=== PATIENT | male | born 1955 | race Hispanic/Latino ===

== ENCOUNTER 2017-11-09 14:11 | Emergency (ER) | payer MEDICARE, MEDICAID ==
[2017-11-09 15:08] LABS: Bilirubin Negative (Negative); Blood, Urine Negative (Negative); Clarity CLEAR (Clear); Glucose, Urine (Dipstick) Negative (Negative); Leukocyte Negative (Negative); Nitrite Negative (Negative); Protein, Urine (Dipstick) Trace mg/dL (Neg-Trace); Specific Gravity, Urine 1.019 (1.002-1.036); pH, Urine 6.5 (5.0-9.0)
--- NOTE | 2017-11-09 15:45 | RAD ---
PA AND LATERAL VIEWS OF THE CHEST: 11/09/17 HISTORY: Cough. FINDINGS: The heart size is normal. The lungs are expanded without focal areas of consolidation, pneumothorax o r pleural effusions. There are mild degenerative changes in the spine. IMPRESSION: No radiographic evidence of acute cardiopulmonary process. POS: [facility]
[2017-11-09 15:56] LABS: #Basophils 0.1 thou/uL (0.0-0.2); #Eosinphils 0.4 thou/uL (0.0-0.7); #Lymphocytes 3.2 thou/uL (1.20-3.40); #Monocytes 0.7 thou/uL (0.11-0.59); #Neutrophils 6.4 thou/uL (1.40-6.50); %Basophils 0.9 % (0.0-1.0); %Eosinophils 3.8 % (0.0-10.0); %Lymphocytes 29.7 % (21.0-51.0); %Monocytes 6.6 % (0.0-10.0); %Neutrophils 59.1 % (42.0-75.0); Hemoglobin 16.3 g/dL (14.0-18.0); Mean Corpuscular HGB CONC 34.5 g/dL (32.0-36.0); Mean Corpuscular Hemoglobin 32.9 pg (27.0-31.0); Mean Corpuscular Volume 95.4 fl (80.0-94.0); Mean Platelet Volume 8.5 fL (7.4-10.4); Platelet Count 95 thou/uL (130-400); RBC Distribution Width 12.5 % (11.5-14.5); Red Blood Cell (RBC) Count 4.97 mill/uL (4.70-6.10); White Blood Cell (WBC) Count 10.8 thou/uL (4.8-10.8)
[2017-11-09 16:18] LABS: ALT (SGPT) 23 U/L (8-55); AST (SGOT) 22 U/L (5-34); Alkaline Phosphatase 125 U/L (40-150); Anion Gap 14 mmol/L (10-20); BUN (Urea Nitrogen) 23 mg/dL (8.4-25.7); Bilirubin, Total 0.6 mg/dL (0.2-1.2); Calc. Creatinine Clearance 0 mL/min (70-130); Carbon Dioxide 23 mmol/L (23-31); Chloride 107 mmol/L (98-107); Estimated GFR-MDRD 70; Globulin 3.6 g/dL (2.4-3.5); Glucose 89 mg/dL (80-115); Potassium 3.9 mmol/L (3.5-5.1); Protein, Total 7.6 g/dL (5.8-8.1); Sodium 140 mmol/L (136-145)
[2017-11-09] MEDS ORDERED: Acetaminophen 325 MG TAB ONE (16:47)
--- NOTE | 2017-11-16 15:06 | EKG ---
Test Reason : Blood Pressure : / mmHG Vent. Rate : 079 BPM Atrial Rate : 079 BPM P-R Int : 136 ms QRS Dur : 090 ms QT Int : 388 ms P-R-T Axes : 050 038 054 degrees QTc Int : 444 ms Normal sinus rhythm Normal ECG Confirmed by GORGE HEREDIA ([id number]), book or script editor CAITLIN TRUJILLO ([id number]) on 11/16/2017 3:05:52 PM Referred By: Confirmed By:GORGE HEREDIA
== END 2017-11-09 17:00 | disposition home or self-care (01) ==
LOC: ERS 14:11
DX: J18.9 Pneumonia, unspecified organism (principal); F17.210 Nicotine dependence, cigarettes, uncomplicated
CPT/HCPCS: 36415; 71046; 80053; 81003; 85025; 87804; 93005; 99406

== ENCOUNTER 2021-05-20 17:14 | Inpatient (IN) | payer MEDICARE, MEDICAID ==
[~2021-05-20 17:14] MED LIST: Iopamidol-370 76% 500 ML 1 ML ONE
[2021-05-20 17:50] LABS: #Eosinphils 0.2 thou/uL (0.0-0.7); #Lymphocytes 1.8 thou/uL (1.20-3.40); #Monocytes 0.6 thou/uL (0.11-0.59); #Neutrophils 6.6 thou/uL (1.40-6.50); %Basophils 0.2 % (0.0-1.0); %Eosinophils 1.6 % (0.0-10.0); %Lymphocytes 19.8 % (21.0-51.0); %Monocytes 6.2 % (0.0-10.0); %Neutrophils 72.1 % (42.0-75.0); Hemoglobin 11.7 g/dL (14.0-18.0); Mean Corpuscular HGB CONC 33.9 g/dL (32.0-36.0); Mean Corpuscular Hemoglobin 32.8 pg (27.0-31.0); Mean Corpuscular Volume 96.9 fL (78.0-98.0); Mean Platelet Volume 9.2 fL (7.4-10.4); Platelet Count 129 thou/uL (130-400); RBC Distribution Width 13.5 % (11.5-14.5); Red Blood Cell (RBC) Count 3.56 mill/uL (4.70-6.10); White Blood Cell (WBC) Count 9.1 thou/uL (4.8-10.8)
[2021-05-20 18:06] LABS: INR-International Normal Ratio 1.3; PTT 33.5 sec (22.9-36.1); Prothrombin Time 16.4 sec (12.0-14.7)
[2021-05-20 18:13] LABS: ALT (SGPT) 21 U/L (8-55); AST (SGOT) 32 U/L (5-34); Albumin 3.5 g/dL (3.4-4.8); Alkaline Phosphatase 90 U/L (40-110); Anion Gap 13 mmol/L (10-20); BUN (Urea Nitrogen) 42 mg/dL (8.4-25.7); Bilirubin, Total 1.6 mg/dL (0.2-1.2); Calc. Creatinine Clearance 0 mL/min (70-130); Calcium 9.3 mg/dL (7.8-10.44); Carbon Dioxide 19 mmol/L (23-31); Chloride 115 mmol/L (98-107); Globulin 3.4 g/dL (2.4-3.5); Glucose 125 mg/dL (80-115); Potassium 4.2 mmol/L (3.5-5.1); Protein, Total 6.9 g/dL (5.8-8.1); Sodium 143 mmol/L (136-145)
[2021-05-20] MEDS ORDERED: cefTRIAXone\\ROCEPHIN 1 GM VIAL ONE (18:47)
[2021-05-20] MEDS ORDERED: Morphine 4 MG/ML VIAL ONE (18:47)
[2021-05-20] MEDS ORDERED: Ondansetron PF 4 MG/2 ML Vial ONE ×2 (18:47→20:38)
[2021-05-20] MEDS ORDERED: Octreotide Acetate 1,250 MCG in Sodium Chloride 0.9% 250 ML 250 ML IVPB SCH (19:15)
[2021-05-20] MEDS ORDERED: Pantoprazole 80 MG, Admixture Fee 1 EACH in Sodium Chloride 0.9% 100 ML IVPB SCH (19:15)
[2021-05-20] MEDS ORDERED: Octreotide Acetate 50 MCG/ML AMP SLOW IVP SCH (19:15)
[2021-05-20 19:26] LABS: Bacteria/HPF None Seen HPF (None Seen); Bilirubin Negative (Negative); Blood, Urine Negative (Negative); Clarity Clear (Clear); Glucose, Urine (Dipstick) Normal (Negative); Ketone, Urine 10 mg/dL (Negative); Leukocyte 25 Leu/uL (Negative); Mucous/LPF Rare LPF (<2+); Nitrite Negative (Negative); Protein, Urine (Dipstick) 20 mg/dL (Neg-Trace); RBC/HPF 0-3 HPF (0-3); Specific Gravity, Urine 1.027 (1.002-1.036); Squamous Epithelial None Seen HPF (0-3); Urobilinogen Normal mg/dL (Less than 2)
[2021-05-20 20:50] LABS: Lactic Acid 2.8 mmol/L (0.5-2.2)
[2021-05-20] MEDS ORDERED: Ondansetron PF 4 MG/2 ML Vial IVP PRN (22:10)
[2021-05-20] MEDS ORDERED: hydrALAZINE 20 MG/ML VIAL SLOW IVP PRN (22:12)
[2021-05-20] MEDS ORDERED: Morphine 2 MG/ML VIAL SLOW IVP PRN (22:12)
[2021-05-20 22:32] LABS: Hemoglobin 10.7 g/dL (14.0-18.0)
[2021-05-20 22:55] LABS: SARS-CoV-2 NAA Rapid Test Not Detected (NotDetected)
[2021-05-20 23:55] LABS: Troponin I 0.014 ng/mL (< 0.028)
[2021-05-21 01:06] VITALS: BMI 30.2
[2021-05-21] MEDS: Dextrose 5 % And 0.9 % NaCl 1,000 ML IV SCH ×3 (02:05→16:27)
[2021-05-21 04:30] LABS: #Basophils 0.1 thou/uL (0.0-0.2); #Eosinphils 0.1 thou/uL (0.0-0.7); #Lymphocytes 1.3 thou/uL (1.20-3.40); #Monocytes 0.6 thou/uL (0.11-0.59); %Basophils 0.7 % (0.0-1.0); %Eosinophils 1.7 % (0.0-10.0); %Lymphocytes 15.6 % (21.0-51.0); %Monocytes 7.6 % (0.0-10.0); %Neutrophils 74.4 % (42.0-75.0); Hemoglobin 10.1 g/dL (14.0-18.0); Mean Corpuscular Hemoglobin 33.1 pg (27.0-31.0); Mean Corpuscular Volume 97.4 fL (78.0-98.0); Mean Platelet Volume 9.8 fL (7.4-10.4); Platelet Count 104 thou/uL (130-400); RBC Distribution Width 13.8 % (11.5-14.5); Red Blood Cell (RBC) Count 3.06 mill/uL (4.70-6.10); White Blood Cell (WBC) Count 8.1 thou/uL (4.8-10.8)
[2021-05-21 04:50] LABS: ALT (SGPT) 19 U/L (8-55); AST (SGOT) 28 U/L (5-34); Albumin 3.2 g/dL (3.4-4.8); Alkaline Phosphatase 71 U/L (40-110); Anion Gap 10 mmol/L (10-20); BUN (Urea Nitrogen) 38 mg/dL (8.4-25.7); Bilirubin, Total 1.2 mg/dL (0.2-1.2); Calc. Creatinine Clearance 114 mL/min (70-130); Calcium 8.7 mg/dL (7.8-10.44); Carbon Dioxide 20 mmol/L (23-31); Chloride 117 mmol/L (98-107); Globulin 3.1 g/dL (2.4-3.5); Glucose 150 mg/dL (80-115); Potassium 4.4 mmol/L (3.5-5.1); Protein, Total 6.3 g/dL (5.8-8.1); Sodium 143 mmol/L (136-145)
[2021-05-21 04:53] LABS: Troponin I Less than 0.010 ng/mL (< 0.028)
[2021-05-21 06:29] LABS: Hemoglobin 10.2 g/dL (14.0-18.0)
[2021-05-21] MEDS: Cefepime 1 GM in Sodium Chloride 0.9% 100 ML IVPB SCH ×2 (09:40→21:00)
[2021-05-21] MEDS ORDERED: Glycopyrrolate 0.2 MG/ML 5 ML SYRINGE ONE (13:51)
[2021-05-21] MEDS ORDERED: Lidocaine 1% PF 5 ML VIAL ONE (13:51)
[2021-05-21] MEDS ORDERED: Rocuronium Bromide 10 MG/ML (10ML VIAL) ONE (13:51)
[2021-05-21] MEDS ORDERED: PROPOFOL 200 MG/20 ML VIAL ONE (13:51)
[2021-05-21] MEDS ORDERED: Ondansetron PF 4 MG/2 ML Vial ONE (14:28)
[2021-05-21] MEDS ORDERED: Promethazine HCl 25 MG/ML VIAL IVPB PRN (14:30)
[2021-05-21] MEDS ORDERED: Ondansetron HCl/PF 4 MG/2 ML Vial IVP PRN (14:30)
[2021-05-21] MEDS ORDERED: Promethazine HCl 25 MG/ML VIAL IM PRN (14:30)
[2021-05-21] MEDS ORDERED: Labetalol HCl 100 MG/20 ML VIAL ONE (14:31)
[2021-05-21] MEDS ORDERED: Labetalol HCl 100 MG/20 ML VIAL SLOW IVP ONE (14:31)
[2021-05-21] MEDS: HYDROcodone/Acetaminophen 5/325 mg Tablet PO PRN (21:44)
[2021-05-21] MEDS ORDERED: Sodium Chloride 0.9% (PF) 10 ML VIAL FS PRN (22:15)
[2021-05-22] MEDS: HYDROcodone/Acetaminophen 5/325 mg Tablet PO PRN ×2 (04:17→13:57)
[2021-05-22 04:52] LABS: #Basophils 0.1 thou/uL (0.0-0.2); #Eosinphils 0.3 thou/uL (0.0-0.7); #Lymphocytes 1.3 thou/uL (1.20-3.40); #Monocytes 0.5 thou/uL (0.11-0.59); #Neutrophils 4.8 thou/uL (1.40-6.50); %Basophils 0.8 % (0.0-1.0); %Eosinophils 4.6 % (0.0-10.0); %Lymphocytes 19.1 % (21.0-51.0); %Monocytes 6.9 % (0.0-10.0); %Neutrophils 68.6 % (42.0-75.0); Hemoglobin 9.8 g/dL (14.0-18.0); Mean Corpuscular HGB CONC 35.6 g/dL (32.0-36.0); Mean Corpuscular Hemoglobin 34.4 pg (27.0-31.0); Mean Corpuscular Volume 96.8 fL (78.0-98.0); Mean Platelet Volume 8.9 fL (7.4-10.4); Platelet Count 118 thou/uL (130-400); RBC Distribution Width 13.6 % (11.5-14.5); Red Blood Cell (RBC) Count 2.85 mill/uL (4.70-6.10)
[2021-05-22 04:57] LABS: ALT (SGPT) 23 U/L (8-55); AST (SGOT) 35 U/L (5-34); Albumin 3.3 g/dL (3.4-4.8); Alkaline Phosphatase 72 U/L (40-110); Anion Gap 10 mmol/L (10-20); BUN (Urea Nitrogen) 21 mg/dL (8.4-25.7); Bilirubin, Total 1.2 mg/dL (0.2-1.2); Calc. Creatinine Clearance 108 mL/min (70-130); Calcium 8.9 mg/dL (7.8-10.44); Carbon Dioxide 21 mmol/L (23-31); Chloride 113 mmol/L (98-107); Globulin 3.2 g/dL (2.4-3.5); Glucose 125 mg/dL (80-115); Potassium 3.5 mmol/L (3.5-5.1); Protein, Total 6.5 g/dL (5.8-8.1); Sodium 140 mmol/L (136-145)
[2021-05-22 05:00] LABS: INR-International Normal Ratio 1.2; Prothrombin Time 15.6 sec (12.0-14.7)
[2021-05-22] MEDS: Dextrose 5 % And 0.9 % NaCl 1,000 ML IV SCH (05:14)
[2021-05-22] MEDS: Cefepime 1 GM in Sodium Chloride 0.9% 100 ML IVPB SCH (08:36)
[2021-05-22] MEDS ORDERED: Nadolol 40 MG TAB PO SCH (09:00)
[2021-05-22] MEDS ORDERED: Pantoprazole 40 MG VIAL IVP SCH (09:00)
[2021-05-22 16:15] VITALS: BP 160/86; TEMP 97.6
== END 2021-05-22 17:16 | disposition home or self-care (01) | DRG 441 ==
LOC: ERS 17:14 → IMCU/EMU 22:27 → 2NO 05-21 15:20
PROVIDERS: ADMIT Internal Medicine; ATTEND Internal Medicine
PROC: 0DJ08ZZ Inspection of Upper Intestinal Tract, Via Natural or Artificial Opening Endoscopic (ICD-10-PCS; principal; 2021-05-21)
DX: K76.6 Portal hypertension (principal); I81 Portal vein thrombosis; C79.00 Secondary malignant neoplasm of unspecified kidney and renal pelvis; I85.10 Secondary esophageal varices without bleeding; Z20.822 Contact with and (suspected) exposure to COVID-19; K31.89 Other diseases of stomach and duodenum; B18.2 Chronic viral hepatitis C; K74.60 Unspecified cirrhosis of liver; N20.0 Calculus of kidney; Z85.05 Personal history of malignant neoplasm of liver; Z87.891 Personal history of nicotine dependence
CPT/HCPCS: 36415; 74177; 80053; 81003; 81015; 83605; 84443; 84484; 85025; 85610; 85730; 86850; 86900; 86901; 87040; 87086; 96365; 96366; 96367; 96368; 96375; 96376; C9113; J0692; J0696; J2270; J2354; J2405; J2704; J3490; J7042; J7050; Q9967; U0002

== ENCOUNTER 2021-09-28 11:22 | Inpatient (IN) | payer MEDICARE, MEDICAID ==
[2021-09-28] MEDS ORDERED: Morphine 4 MG/ML VIAL ONE (12:24)
[2021-09-28] MEDS ORDERED: Ondansetron PF 4 MG/2 ML Vial ONE (12:24)
[2021-09-28 12:54] LABS: #Lymphocytes 0.7 thou/uL (1.20-3.40); #Monocytes 0.4 thou/uL (0.11-0.59); #Neutrophils 1.5 thou/uL (1.40-6.50); %Basophils 0.5 % (0.0-1.0); %Eosinophils 0.9 % (0.0-10.0); %Lymphocytes 26.2 % (21.0-51.0); %Monocytes 13.8 % (0.0-10.0); %Neutrophils 58.6 % (42.0-75.0); Mean Corpuscular HGB CONC 32.3 g/dL (32.0-36.0); Mean Corpuscular Hemoglobin 30.9 pg (27.0-31.0); Mean Corpuscular Volume 95.6 fL (78.0-98.0); Platelet Count 123 thou/uL (130-400); RBC Distribution Width 16.8 % (11.5-14.5); Red Blood Cell (RBC) Count 2.92 mill/uL (4.70-6.10); White Blood Cell (WBC) Count 2.5 thou/uL (4.8-10.8)
[2021-09-28 13:19] LABS: ALT (SGPT) 19 U/L (8-55); AST (SGOT) 34 U/L (5-34); Albumin 2.9 g/dL (3.4-4.8); Alkaline Phosphatase 68 U/L (40-110); Anion Gap 13 mmol/L (10-20); BUN (Urea Nitrogen) 9 mg/dL (8.4-25.7); Bilirubin, Total 1.4 mg/dL (0.2-1.2); Calc. Creatinine Clearance 0 mL/min (70-130); Calcium 8.2 mg/dL (7.8-10.44); Carbon Dioxide 18 mmol/L (23-31); Chloride 108 mmol/L (98-107); Globulin 3.6 g/dL (2.4-3.5); Glucose 86 mg/dL (80-115); Lipase 128 U/L (8-78); Protein, Total 6.5 g/dL (5.8-8.1); Sodium 135 mmol/L (136-145)
[2021-09-28 13:29] LABS: INR-International Normal Ratio 1.4; PTT 41.7 sec (22.9-36.1); Prothrombin Time 17.7 sec (12.0-14.7)
[2021-09-28 13:46] LABS: Bilirubin Negative (Negative); Blood, Urine Negative (Negative); Clarity Clear (Clear); Glucose, Urine (Dipstick) Normal (Negative); Ketone, Urine Negative (Negative); Leukocyte Negative Leu/uL (Negative); Nitrite Negative (Negative); Protein, Urine (Dipstick) Negative (Neg-Trace); Specific Gravity, Urine 1.014 (1.002-1.036)
[2021-09-28] MEDS ORDERED: Iopamidol-370 76% 500 ML 1 ML ONE (14:11)
[2021-09-28] MEDS ORDERED: Piperacillin/Tazobactam 4.5 GM VIAL ONE (14:21)
[2021-09-28 15:42] LABS: SARS-CoV-2 NAA Rapid Test DETECTED (NotDetected)
[2021-09-28] MEDS ORDERED: Acetaminophen 325 MG TAB PO PRN (17:45)
[2021-09-28] MEDS ORDERED: Piperacillin/Tazobactam 3.375 GM in Sodium Chloride 0.9% 100 ML IVPB SCH (18:00)
[2021-09-28] MEDS ORDERED: Piperacillin/Tazobactam 3.375 GM VIAL ONE (18:14)
[2021-09-28] MEDS: Piperacillin/Tazobactam 3.375 GM in Sodium Chloride 0.9% 100 ML IVPB SCH (20:55)
[2021-09-28] MEDS: Rifaximin 550 MG TAB PO SCH (20:56)
[2021-09-28] MEDS: Sodium Bicarbonate Tab 325 MG TAB PO SCH (20:56)
[2021-09-29] MEDS ORDERED: Piperacillin/Tazobactam 3.375 GM VIAL ONE (04:04)
[2021-09-29] MEDS: Piperacillin/Tazobactam 3.375 GM in Sodium Chloride 0.9% 100 ML IVPB SCH (04:16)
[2021-09-29 07:11] LABS: #Eosinphils 0.2 thou/uL (0.0-0.7); #Lymphocytes 0.8 thou/uL (1.20-3.40); #Monocytes 0.3 thou/uL (0.11-0.59); #Neutrophils 1.5 thou/uL (1.40-6.50); %Basophils 0.4 % (0.0-1.0); %Eosinophils 5.6 % (0.0-10.0); %Lymphocytes 30.6 % (21.0-51.0); %Monocytes 9.9 % (0.0-10.0); %Neutrophils 53.5 % (42.0-75.0); Hemoglobin 9.3 g/dL (14.0-18.0); Mean Corpuscular HGB CONC 32.3 g/dL (32.0-36.0); Mean Corpuscular Hemoglobin 30.8 pg (27.0-31.0); Mean Corpuscular Volume 95.4 fL (78.0-98.0); Mean Platelet Volume 8.2 fL (7.4-10.4); Platelet Count 119 thou/uL (130-400); RBC Distribution Width 16.9 % (11.5-14.5); Red Blood Cell (RBC) Count 3.03 mill/uL (4.70-6.10); White Blood Cell (WBC) Count 2.7 thou/uL (4.8-10.8)
[2021-09-29 07:58] LABS: Chloride 111 mmol/L (98-107); Potassium 3.9 mmol/L (3.5-5.1); Sodium 138 mmol/L (136-145)
[2021-09-29 07:59] LABS: Glucose 91 mg/dL (80-115)
[2021-09-29 08:01] LABS: Anion Gap 13 mmol/L (10-20); Carbon Dioxide 18 mmol/L (23-31)
[2021-09-29 08:03] LABS: Calc. Creatinine Clearance 0 mL/min (70-130)
[2021-09-29 08:04] LABS: BUN (Urea Nitrogen) 9 mg/dL (8.4-25.7)
[2021-09-29] MEDS ORDERED: Nadolol 40 MG TAB PO SCH (09:00)
[2021-09-29] MEDS: Sodium Bicarbonate Tab 325 MG TAB PO SCH ×2 (10:46→20:40)
[2021-09-29] MEDS: Rifaximin 550 MG TAB PO SCH ×2 (10:46→20:40)
[2021-09-29] MEDS ORDERED: Morphine 4 MG/ML VIAL SLOW IVP SCH (23:59)
[2021-09-30 05:55] LABS: #Eosinphils 0.2 thou/uL (0.0-0.7); #Lymphocytes 0.9 thou/uL (1.20-3.40); #Monocytes 0.3 thou/uL (0.11-0.59); #Neutrophils 1.2 thou/uL (1.40-6.50); %Basophils 1.1 % (0.0-1.0); %Eosinophils 5.9 % (0.0-10.0); %Lymphocytes 34.9 % (21.0-51.0); %Monocytes 11.3 % (0.0-10.0); %Neutrophils 46.9 % (42.0-75.0); Hemoglobin 9.3 g/dL (14.0-18.0); Mean Corpuscular HGB CONC 32.6 g/dL (32.0-36.0); Mean Corpuscular Hemoglobin 31.3 pg (27.0-31.0); Mean Platelet Volume 8.3 fL (7.4-10.4); Platelet Count 115 thou/uL (130-400); RBC Distribution Width 16.7 % (11.5-14.5); Red Blood Cell (RBC) Count 2.97 mill/uL (4.70-6.10); White Blood Cell (WBC) Count 2.6 thou/uL (4.8-10.8)
[2021-09-30 05:56] LABS: Hemoglobin A1c 4.6 % (4.0-6.0)
[2021-09-30 06:08] LABS: ALT (SGPT) 13 U/L (8-55); AST (SGOT) 23 U/L (5-34); Albumin 2.7 g/dL (3.4-4.8); Alkaline Phosphatase 60 U/L (40-110); Anion Gap 10 mmol/L (10-20); BUN (Urea Nitrogen) 10 mg/dL (8.4-25.7); Bilirubin, Total 0.9 mg/dL (0.2-1.2); Calc. Creatinine Clearance 105 mL/min (70-130); Calcium 7.8 mg/dL (7.8-10.44); Carbon Dioxide 18 mmol/L (23-31); Chloride 113 mmol/L (98-107); Globulin 3.4 g/dL (2.4-3.5); Glucose 119 mg/dL (80-115); Phosphorus 3.1 mg/dL (2.3-4.7); Potassium 3.2 mmol/L (3.5-5.1); Protein, Total 6.1 g/dL (5.8-8.1); Sodium 138 mmol/L (136-145)
[2021-09-30 06:31] LABS: Hep C IgG Ab Reflex HepC Qnt (NonReactive); Hep C Index 10.98 S/CO (0-0.79)
[2021-09-30] MEDS ORDERED: FLU VACC QS2021-22(65YR UP)/PF 240 MCG/0.7 ML SYRINGE IM ONE (09:00)
[2021-09-30] MEDS ORDERED: Nadolol 40 MG TAB PO SCH (09:00)
[2021-09-30] MEDS ORDERED: Azithromycin 250 MG TAB PO SCH (09:00)
[2021-09-30] MEDS: Rifaximin 550 MG TAB PO SCH ×2 (09:28→20:27)
[2021-09-30] MEDS: Sodium Bicarbonate Tab 325 MG TAB PO SCH ×2 (09:28→20:26)
[2021-09-30] MEDS ORDERED: Morphine IR Tab 15 MG TAB PO PRN (11:37)
[2021-09-30 11:52] VITALS: BMI 32.5
[2021-09-30 16:46] VITALS: TEMP 98.3
[2021-09-30 19:25] VITALS: BP 135/71
== END 2021-09-30 21:15 | disposition home or self-care (01) | DRG 371 ==
LOC: ERS 11:22 → ERHOLD 14:51 → 2SE 09-29 14:23
PROVIDERS: ADMIT Family Medicine; ATTEND Internal Medicine
PROC: 8E0ZXY6 Isolation (ICD-10-PCS; principal; 2021-09-28)
DX: A04.5 Campylobacter enteritis (principal); I81 Portal vein thrombosis; U07.1 COVID-19; J90 Pleural effusion, not elsewhere classified; D61.818 Other pancytopenia; D68.4 Acquired coagulation factor deficiency; E87.1 Hypo-osmolality and hyponatremia; K76.6 Portal hypertension; I85.10 Secondary esophageal varices without bleeding; R18.8 Other ascites; C22.0 Liver cell carcinoma; K92.2 Gastrointestinal hemorrhage, unspecified; K74.60 Unspecified cirrhosis of liver; I10 Essential (primary) hypertension; D63.8 Anemia in other chronic diseases classified elsewhere; R16.1 Splenomegaly, not elsewhere classified; N20.0 Calculus of kidney; R94.31 Abnormal electrocardiogram [ECG] [EKG]; K72.90 Hepatic failure, unspecified without coma; Z87.11 Personal history of peptic ulcer disease
CPT/HCPCS: 36415; 71045; 74177; 80048; 80053; 81003; 83036; 83690; 83735; 84100; 84484; 85025; 85610; 85730; 86803; 87045; 87046; 87081; 87324; 87427; 87449; 87522; 93005; J2270; J2405; J2543; J3490; Q9967; U0002

== ENCOUNTER 2021-10-19 00:16 | Inpatient (IN) | payer MEDICARE, MEDICAID ==
[2021-10-19] MEDS ORDERED: Ondansetron PF 4 MG/2 ML Vial ONE (01:09)
[2021-10-19] MEDS ORDERED: Pantoprazole 40 MG VIAL ONE (01:09)
[2021-10-19 01:23] LABS: #Basophils 0.1 thou/uL (0.0-0.2); #Eosinphils 0.2 thou/uL (0.0-0.7); #Lymphocytes 1.2 thou/uL (1.20-3.40); #Monocytes 0.4 thou/uL (0.11-0.59); #Neutrophils 3.9 thou/uL (1.40-6.50); %Basophils 0.9 % (0.0-1.0); %Eosinophils 3.7 % (0.0-10.0); %Lymphocytes 21.2 % (21.0-51.0); %Monocytes 7.3 % (0.0-10.0); %Neutrophils 66.9 % (42.0-75.0); Hemoglobin 12.6 g/dL (14.0-18.0); Mean Corpuscular HGB CONC 33.3 g/dL (32.0-36.0); Mean Corpuscular Hemoglobin 31.6 pg (27.0-31.0); Mean Corpuscular Volume 94.8 fL (78.0-98.0); Mean Platelet Volume 9.9 fL (7.4-10.4); Platelet Count 106 thou/uL (130-400); RBC Distribution Width 17.1 % (11.5-14.5); Red Blood Cell (RBC) Count 3.98 mill/uL (4.70-6.10); White Blood Cell (WBC) Count 5.9 thou/uL (4.8-10.8)
[2021-10-19 01:33] LABS: Bilirubin Negative (Negative); Blood, Urine Negative (Negative); Clarity Clear (Clear); Glucose, Urine (Dipstick) Normal (Negative); Ketone, Urine Negative (Negative); Leukocyte Negative Leu/uL (Negative); Nitrite Negative (Negative); Protein, Urine (Dipstick) Negative (Neg-Trace); Specific Gravity, Urine 1.011 (1.002-1.036); Urobilinogen Normal mg/dL (Less than 2); pH, Urine 7.5 (5.0-9.0)
[2021-10-19 01:34] LABS: ALT (SGPT) 20 U/L (8-55); AST (SGOT) 28 U/L (5-34); Albumin 3.5 g/dL (3.4-4.8); Alkaline Phosphatase 127 U/L (40-110); Anion Gap 11 mmol/L (10-20); BUN (Urea Nitrogen) 11 mg/dL (8.4-25.7); Calc. Creatinine Clearance 0 mL/min (70-130); Carbon Dioxide 24 mmol/L (23-31); Chloride 110 mmol/L (98-107); Globulin 3.9 g/dL (2.4-3.5); Glucose 145 mg/dL (80-115); Lipase 172 U/L (8-78); Potassium 3.5 mmol/L (3.5-5.1); Protein, Total 7.4 g/dL (5.8-8.1); Sodium 141 mmol/L (136-145)
[2021-10-19] MEDS ORDERED: Lorazepam 2 MG/ML VIAL ONE (03:25)
[2021-10-19] MEDS ORDERED: Ondansetron PF 4 MG/2 ML Vial IVP PRN (03:30)
[2021-10-19] MEDS ORDERED: Ondansetron ODT 4 MG TAB SL PRN (03:30)
[2021-10-19] MEDS ORDERED: Acetaminophen 325 MG TAB PO PRN (03:30)
[2021-10-19 04:15] LABS: Troponin I 0.013 ng/mL (< 0.028)
[2021-10-19] MEDS ORDERED: Acetaminophen 650 MG Suppository PR PRN (04:21)
[2021-10-19] MEDS ORDERED: hydrALAZINE 20 MG/ML VIAL SLOW IVP PRN (04:40)
[2021-10-19] MEDS ORDERED: Lactulose 10 GM/15 ML Oral Solution PR SCH (05:00)
[2021-10-19 05:11] VITALS: BMI 29.8
[2021-10-19] MEDS ORDERED: Octreotide Acetate 1,000 mcg/ml Multi-Dose Vial IV SCH (07:07)
[2021-10-19] MEDS ORDERED: Octreotide Acetate 100 MCG/ML VIAL SLOW IVP SCH (07:30)
[2021-10-19 07:35] LABS: Troponin I 0.015 ng/mL (< 0.028)
[2021-10-19] MEDS: cefTRIAXone\\ROCEPHIN 1 GM in Sodium Chloride 0.9% 100 ML IVPB SCH (08:12)
[2021-10-19] MEDS: Pantoprazole 40 MG VIAL IVP SCH ×2 (08:12→20:45)
[2021-10-19] MEDS ORDERED: Enoxaparin Sodium 40 MG/0.4 ML SYRINGE SC SCH (09:00)
[2021-10-19] MEDS: Octreotide Acetate 1,250 MCG in Sodium Chloride 0.9% 250 ML 250 ML IVPB SCH (09:17)
[2021-10-19] MEDS ORDERED: Iopamidol 370 76% 50 ML VIAL FS ONE (11:34)
[2021-10-19] MEDS ORDERED: Acetaminophen 325 MG/10.15 ML UDCUP PO PRN (17:09)
[2021-10-19] MEDS ORDERED: Rifaximin 550 MG TAB PER TUBE SCH (21:00)
[2021-10-19] MEDS ORDERED: Sterile Water 10 ML VIAL FS PRN (22:00)
[2021-10-19] MEDS ORDERED: OLANZapine 10 MG VIAL IM SCH (22:00)
[2021-10-20] MEDS: Rifaximin 550 MG TAB PO SCH ×2 (09:15→20:34)
[2021-10-20] MEDS: Pantoprazole 40 MG VIAL IVP SCH ×2 (09:15→20:34)
[2021-10-20] MEDS: cefTRIAXone\\ROCEPHIN 1 GM in Sodium Chloride 0.9% 100 ML IVPB SCH (09:19)
[2021-10-20 13:05] LABS: #Eosinphils 0.2 thou/uL (0.0-0.7); #Lymphocytes 1.2 thou/uL (1.20-3.40); #Monocytes 0.5 thou/uL (0.11-0.59); #Neutrophils 2.7 thou/uL (1.40-6.50); %Basophils 0.9 % (0.0-1.0); %Eosinophils 4.5 % (0.0-10.0); %Monocytes 10.8 % (0.0-10.0); %Neutrophils 57.9 % (42.0-75.0); Hemoglobin 11.6 g/dL (14.0-18.0); Mean Corpuscular HGB CONC 33.2 g/dL (32.0-36.0); Mean Corpuscular Hemoglobin 31.4 pg (27.0-31.0); Mean Corpuscular Volume 94.6 fL (78.0-98.0); Platelet Count 86 thou/uL (130-400); RBC Distribution Width 17.3 % (11.5-14.5); Red Blood Cell (RBC) Count 3.69 mill/uL (4.70-6.10); White Blood Cell (WBC) Count 4.6 thou/uL (4.8-10.8)
[2021-10-20 13:22] LABS: ALT (SGPT) 19 U/L (8-55); AST (SGOT) 26 U/L (5-34); Albumin 3.3 g/dL (3.4-4.8); Alkaline Phosphatase 89 U/L (40-110); Anion Gap 13 mmol/L (10-20); BUN (Urea Nitrogen) 11 mg/dL (8.4-25.7); Bilirubin, Total 1.9 mg/dL (0.2-1.2); Calc. Creatinine Clearance 107 mL/min (70-130); Calcium 8.8 mg/dL (7.8-10.44); Carbon Dioxide 20 mmol/L (23-31); Chloride 112 mmol/L (98-107); Globulin 3.6 g/dL (2.4-3.5); Glucose 150 mg/dL (80-115); Potassium 3.4 mmol/L (3.5-5.1); Protein, Total 6.9 g/dL (5.8-8.1); Sodium 142 mmol/L (136-145)
[2021-10-20] MEDS: Octreotide Acetate 1,250 MCG in Sodium Chloride 0.9% 250 ML 250 ML IVPB SCH (14:29)
[2021-10-20] MEDS: Melatonin 3 MG TAB PO PRN (21:51)
[2021-10-21] MEDS ORDERED: PROPOFOL 200 MG/20 ML VIAL ONE (08:11)
[2021-10-21] MEDS: Rifaximin 550 MG TAB PO SCH ×2 (09:24→21:29)
[2021-10-21] MEDS: Nadolol 40 MG TAB PO SCH (09:25)
[2021-10-21] MEDS: cefTRIAXone\\ROCEPHIN 1 GM in Sodium Chloride 0.9% 100 ML IVPB SCH (09:28)
[2021-10-22] MEDS: Melatonin 3 MG TAB PO PRN (00:59)
[2021-10-22 07:20] VITALS: BP 152/85; TEMP 98
[2021-10-22] MEDS: Nadolol 40 MG TAB PO SCH (08:18)
[2021-10-22] MEDS: cefTRIAXone\\ROCEPHIN 1 GM in Sodium Chloride 0.9% 100 ML IVPB SCH (08:18)
[2021-10-22] MEDS: Rifaximin 550 MG TAB PO SCH (08:19)
[2021-10-22] MEDS ORDERED: FLU VACC QS2021-22(65YR UP)/PF 240 MCG/0.7 ML SYRINGE IM ONE (09:00)
== END 2021-10-22 13:55 | disposition home or self-care (01) | DRG 441 ==
LOC: ERS 00:16 → T4-B 03:10
PROVIDERS: ADMIT Student in an Organized Health Care Education/Training Program; ATTEND Internal Medicine
PROC: 06L38CZ Occlusion of Esophageal Vein with Extraluminal Device, Via Natural or Artificial Opening Endoscopic (ICD-10-PCS; principal; 2021-10-21)
DX: K72.00 Acute and subacute hepatic failure without coma (principal); I85.11 Secondary esophageal varices with bleeding; I81 Portal vein thrombosis; K76.6 Portal hypertension; C22.0 Liver cell carcinoma; K22.10 Ulcer of esophagus without bleeding; K70.31 Alcoholic cirrhosis of liver with ascites; K31.89 Other diseases of stomach and duodenum; F17.210 Nicotine dependence, cigarettes, uncomplicated; D69.59 Other secondary thrombocytopenia; E87.6 Hypokalemia; K29.00 Acute gastritis without bleeding; Z90.49 Acquired absence of other specified parts of digestive tract; Z79.899 Other long term (current) drug therapy
CPT/HCPCS: 36415; 36416; 71045; 74177; 80053; 81003; 82105; 82140; 82728; 83540; 83550; 83690; 84484; 85025; 87040; 93005; 96374; 96375; C9113; J0696; J2060; J2354; J2358; J2405; J2704; J3490; J7050; Q9967

== ENCOUNTER 2021-12-28 13:31 | Outpatient (CLI) | payer MEDICARE, MEDICAID ==
[2021-12-29 00:13] LABS: SARS-CoV-2 PCR by NAA Not Detected (NotDetected)
== END 2021-12-28 13:32 | disposition home or self-care (01) ==
LOC: LABBT 13:31
PROVIDERS: ATTEND Internal Medicine
DX: Z20.822 Contact with and (suspected) exposure to COVID-19 (principal)
CPT/HCPCS: U0003; U0005

== ENCOUNTER 2022-01-10 14:44 | Inpatient (IN) | payer MEDICARE, MEDICAID ==
[2022-01-10 15:56] LABS: #Eosinphils 0.1 thou/uL (0.0-0.7); #Lymphocytes 1.1 thou/uL (1.20-3.40); #Monocytes 0.4 thou/uL (0.11-0.59); #Neutrophils 4.6 thou/uL (1.40-6.50); %Basophils 0.4 % (0.0-1.0); %Eosinophils 2.1 % (0.0-10.0); %Lymphocytes 17.7 % (21.0-51.0); %Monocytes 6.4 % (0.0-10.0); %Neutrophils 73.4 % (42.0-75.0); Hemoglobin 14.6 g/dL (14.0-18.0); Mean Corpuscular Hemoglobin 32.2 pg (27.0-31.0); Mean Corpuscular Volume 97.6 fL (78.0-98.0); Mean Platelet Volume 9.3 fL (7.4-10.4); Platelet Count 121 thou/uL (130-400); RBC Distribution Width 15.2 % (11.5-14.5); Red Blood Cell (RBC) Count 4.52 mill/uL (4.70-6.10); White Blood Cell (WBC) Count 6.2 thou/uL (4.8-10.8)
[2022-01-10 16:15] LABS: ALT (SGPT) 23 U/L (8-55); AST (SGOT) 34 U/L (5-34); Albumin 3.9 g/dL (3.4-4.8); Alkaline Phosphatase 98 U/L (40-110); Anion Gap 9 mmol/L (10-20); BUN (Urea Nitrogen) 13 mg/dL (8.4-25.7); Bilirubin, Total 2.2 mg/dL (0.2-1.2); Calc. Creatinine Clearance 0 mL/min (70-130); Calcium 9.3 mg/dL (7.8-10.44); Carbon Dioxide 23 mmol/L (23-31); Chloride 115 mmol/L (98-107); Globulin 3.1 g/dL (2.4-3.5); Glucose 144 mg/dL (80-115); Lipase 129 U/L (8-78); Potassium 3.2 mmol/L (3.5-5.1); Sodium 144 mmol/L (136-145)
[2022-01-10] MEDS ORDERED: Morphine 4 MG/ML VIAL ONE ×2 (16:32→19:06)
[2022-01-10 17:14] LABS: INR-International Normal Ratio 1.3; Prothrombin Time 16.6 sec (12.0-14.7)
[2022-01-10 17:15] LABS: PTT 33.4 sec (22.9-36.1)
[2022-01-10 18:10] LABS: Bilirubin Negative (Negative); Blood, Urine Negative (Negative); Clarity Clear (Clear); Glucose, Urine (Dipstick) Normal (Negative); Ketone, Urine Negative (Negative); Leukocyte Negative Leu/uL (Negative); Nitrite Negative (Negative); Protein, Urine (Dipstick) Negative (Neg-Trace); Specific Gravity, Urine 1.035 (1.002-1.036); Urobilinogen Normal mg/dL (Less than 2)
[2022-01-10] MEDS ORDERED: Potassium Chloride 20 MEQ TAB ONE (19:06)
[2022-01-10] MEDS ORDERED: cefTRIAXone\\ROCEPHIN 2 GM VIAL ONE (19:06)
[2022-01-10 19:53] LABS: Lactic Acid 1.8 mmol/L (0.5-2.2)
[2022-01-10] MEDS ORDERED: Morphine IR Tab 15 MG TAB PO PRN (20:19)
[2022-01-10] MEDS ORDERED: Ondansetron ODT 4 MG TAB PO PRN (20:20)
[2022-01-10] MEDS ORDERED: Calcium Carbonate 500 MG ChewTAB PO PRN (20:20)
[2022-01-10] MEDS ORDERED: Bisacodyl 5 MG TAB PO PRN (20:20)
[2022-01-10] MEDS ORDERED: Acetaminophen 325 MG TAB PO PRN (20:20)
[2022-01-10] MEDS ORDERED: Senokot S 8.6-50 MG TAB PO PRN (20:20)
[2022-01-10 20:39] VITALS: BMI 26.4
[2022-01-10] MEDS: Lactated Ringer's 1,000 ML IV SCH (21:38)
[2022-01-10] MEDS ORDERED: Morphine IR Tab 15 MG TAB PO SCH (22:30)
[2022-01-11 05:47] LABS: ALT (SGPT) 40 U/L (8-55); AST (SGOT) 69 U/L (5-34); Albumin 3.2 g/dL (3.4-4.8); Alkaline Phosphatase 88 U/L (40-110); Anion Gap 13 mmol/L (10-20); BUN (Urea Nitrogen) 10 mg/dL (8.4-25.7); Bilirubin, Total 1.5 mg/dL (0.2-1.2); Calc. Creatinine Clearance 113 mL/min (70-130); Calcium 8.3 mg/dL (7.8-10.44); Carbon Dioxide 18 mmol/L (23-31); Chloride 112 mmol/L (98-107); Globulin 2.4 g/dL (2.4-3.5); Glucose 151 mg/dL (80-115); Potassium 3.3 mmol/L (3.5-5.1); Protein, Total 5.6 g/dL (5.8-8.1); Sodium 140 mmol/L (136-145)
[2022-01-11 06:06] LABS: #Eosinphils 0.4 thou/uL (0.0-0.7); #Lymphocytes 1.4 thou/uL (1.20-3.40); #Monocytes 0.7 thou/uL (0.11-0.59); #Neutrophils 5.5 thou/uL (1.40-6.50); %Basophils 0.4 % (0.0-1.0); %Eosinophils 4.7 % (0.0-10.0); %Lymphocytes 17.6 % (21.0-51.0); %Monocytes 8.3 % (0.0-10.0); %Neutrophils 68.9 % (42.0-75.0); Hemoglobin 12.4 g/dL (14.0-18.0); Mean Corpuscular Hemoglobin 33.3 pg (27.0-31.0); Mean Corpuscular Volume 95.2 fL (78.0-98.0); Mean Platelet Volume 8.5 fL (7.4-10.4); Platelet Count 73 thou/uL (130-400); Platelet Morphology Comment Appears Decreased; RBC Distribution Width 14.8 % (11.5-14.5); Red Blood Cell (RBC) Count 3.72 mill/uL (4.70-6.10); White Blood Cell (WBC) Count 7.9 thou/uL (4.8-10.8)
[2022-01-11] MEDS: Lactated Ringer's 1,000 ML IV SCH (07:55)
[2022-01-11] MEDS ORDERED: Nadolol 40 MG TAB PO SCH (09:00)
[2022-01-11] MEDS ORDERED: Enoxaparin Sodium 40 MG/0.4 ML SYRINGE SC SCH (09:00)
[2022-01-11] MEDS ORDERED: Potassium Chloride 20 MEQ TAB PO SCH (09:30)
[2022-01-11 12:20] LABS: SARS-CoV-2 PCR by NAA Not Detected (NotDetected)
[2022-01-11 12:26] VITALS: BP 134/85; TEMP 98.1
== END 2022-01-11 13:48 | disposition home or self-care (01) | DRG 947 ==
LOC: ERS 14:44 → MSONC 18:44
PROVIDERS: ADMIT Student in an Organized Health Care Education/Training Program; ATTEND Student in an Organized Health Care Education/Training Program
DX: G89.3 Neoplasm related pain (acute) (chronic) (principal); Z66 Do not resuscitate; Z20.822 Contact with and (suspected) exposure to COVID-19; K85.90 Acute pancreatitis without necrosis or infection, unspecified; I81 Portal vein thrombosis; C22.0 Liver cell carcinoma; E87.2 Acidosis; F14.10 Cocaine abuse, uncomplicated; N18.2 Chronic kidney disease, stage 2 (mild); M19.011 Primary osteoarthritis, right shoulder; K21.9 Gastro-esophageal reflux disease without esophagitis; K70.30 Alcoholic cirrhosis of liver without ascites; E87.6 Hypokalemia; Z87.891 Personal history of nicotine dependence; Z79.899 Other long term (current) drug therapy; Z98.890 Other specified postprocedural states
CPT/HCPCS: 36415; 74177; 80053; 81003; 83605; 83690; 83735; 85025; 85610; 85730; 87040; 96365; 96375; 96376; J0696; J2270; J7120; Q9967; U0003; U0005

== ENCOUNTER 2022-02-08 09:50 | Outpatient (CLI) | payer MEDICARE, MEDICAID ==
[2022-02-08 18:14] LABS: SARS-CoV-2 PCR by NAA Not Detected (NotDetected)
== END 2022-02-08 09:51 | disposition home or self-care (01) ==
LOC: LABBT 09:50
PROVIDERS: ATTEND Internal Medicine
DX: K70.30 Alcoholic cirrhosis of liver without ascites (principal); I85.10 Secondary esophageal varices without bleeding; Z20.822 Contact with and (suspected) exposure to COVID-19
CPT/HCPCS: U0003; U0005

== ENCOUNTER 2022-02-13 07:22 | Day surgery (SDC) | payer MEDICARE, MEDICAID ==
[2022-02-08 10:41] VITALS: BMI 28.3
[2022-02-13] MEDS ORDERED: Midazolam HCl 2 mg/2 ml Vial ONE (07:55)
[2022-02-13] MEDS ORDERED: Lidocaine 1% PF 5 ML VIAL ONE (08:52)
[2022-02-13] MEDS ORDERED: PROPOFOL 200 MG/20 ML VIAL ONE (08:52)
== END 2022-02-13 10:43 | disposition home or self-care (01) ==
LOC: SDC 07:22
PROVIDERS: ATTEND Internal Medicine
PROC: 06L38CZ Occlusion of Esophageal Vein with Extraluminal Device, Via Natural or Artificial Opening Endoscopic (ICD-10-PCS; principal; 2022-02-13)
DX: K74.60 Unspecified cirrhosis of liver (principal); I85.10 Secondary esophageal varices without bleeding; K76.6 Portal hypertension; K31.89 Other diseases of stomach and duodenum; K72.90 Hepatic failure, unspecified without coma; C22.0 Liver cell carcinoma; I10 Essential (primary) hypertension; Z86.16 Personal history of COVID-19; Z87.891 Personal history of nicotine dependence; Z79.899 Other long term (current) drug therapy
CPT/HCPCS: J2250; J2704

== ENCOUNTER 2022-03-30 08:36 | Outpatient (CLI) | payer MEDICARE, MEDICAID ==
[2022-03-30] MEDS ORDERED: Iopamidol 370 76% 100 ML VIAL ONE (13:48)
== END 2022-03-30 08:37 | disposition home or self-care (01) ==
LOC: CT 08:36
PROVIDERS: ATTEND Internal Medicine Hematology & Oncology
DX: C22.0 Liver cell carcinoma (principal); R91.8 Other nonspecific abnormal finding of lung field; N20.0 Calculus of kidney; N28.1 Cyst of kidney, acquired; K74.60 Unspecified cirrhosis of liver; R16.1 Splenomegaly, not elsewhere classified; I81 Portal vein thrombosis; K55.059 Acute (reversible) ischemia of intestine, part and extent unspecified; I82.890 Acute embolism and thrombosis of other specified veins; K76.6 Portal hypertension
CPT/HCPCS: 71260; 74177; Q9967

== ENCOUNTER 2022-04-12 11:59 | Emergency (ER) | payer OTHER, MEDICAID ==
[2022-04-12 12:56] LABS: #Eosinphils 0.1 thou/uL (0.0-0.7); #Lymphocytes 1.2 thou/uL (1.20-3.40); #Monocytes 0.6 thou/uL (0.11-0.59); #Neutrophils 6.5 thou/uL (1.40-6.50); %Basophils 0.4 % (0.0-1.0); %Eosinophils 1.2 % (0.0-10.0); %Lymphocytes 14.1 % (21.0-51.0); %Monocytes 7.2 % (0.0-10.0); %Neutrophils 77.1 % (42.0-75.0); Hemoglobin 13.1 g/dL (14.0-18.0); Mean Corpuscular HGB CONC 33.6 g/dL (32.0-36.0); Mean Corpuscular Hemoglobin 32.9 pg (27.0-31.0); Mean Corpuscular Volume 98.1 fL (78.0-98.0); Mean Platelet Volume 9.2 fL (7.4-10.4); Platelet Count 93 thou/uL (130-400); RBC Distribution Width 14.9 % (11.5-14.5); Red Blood Cell (RBC) Count 3.97 mill/uL (4.70-6.10); White Blood Cell (WBC) Count 8.5 thou/uL (4.8-10.8)
[2022-04-12 13:22] LABS: ALT (SGPT) 29 U/L (8-55); AST (SGOT) 50 U/L (5-34); Albumin 3.9 g/dL (3.4-4.8); Alkaline Phosphatase 99 U/L (40-110); Anion Gap 13 mmol/L (10-20); BUN (Urea Nitrogen) 11 mg/dL (8.4-25.7); Bilirubin, Total 1.9 mg/dL (0.2-1.2); Calc. Creatinine Clearance 0 mL/min (70-130); Calcium 9.4 mg/dL (7.8-10.44); Carbon Dioxide 22 mmol/L (23-31); Chloride 112 mmol/L (98-107); Estimated GFR 97; Globulin 2.9 g/dL (2.4-3.5); Glucose 132 mg/dL (80-115); Lipase 93 U/L (8-78); Potassium 3.4 mmol/L (3.5-5.1); Protein, Total 6.8 g/dL (5.8-8.1); Sodium 144 mmol/L (136-145)
[2022-04-12] MEDS ORDERED: Morphine 4 MG/ML VIAL ONE (14:13)
[2022-04-12] MEDS ORDERED: Ondansetron PF 4 MG/2 ML Vial ONE (14:22)
[2022-04-12] MEDS ORDERED: Iopamidol-370 76% 500 ML 1 ML ONE (16:00)
== END 2022-04-12 15:35 | disposition home or self-care (01) ==
LOC: ERS 11:59
DX: M54.50 Low back pain, unspecified (principal); R10.10 Upper abdominal pain, unspecified; Z87.891 Personal history of nicotine dependence; C22.0 Liver cell carcinoma; D50.0 Iron deficiency anemia secondary to blood loss (chronic)
CPT/HCPCS: 36415; 74177; 80053; 82105; 83690; 84436; 84443; 84484; 85025; 93005; 96374; 96375; J2270; J2405; Q9967

== ENCOUNTER 2022-06-10 21:31 | Emergency (ER) | payer OTHER, MEDICAID ==
[2022-06-10 22:32] LABS: Hemoglobin 13.1 g/dL (14.0-18.0); Mean Corpuscular Hemoglobin 32.7 pg (27.0-31.0); Mean Corpuscular Volume 98.9 fL (78.0-98.0); RBC Distribution Width 15.8 % (11.5-14.5); White Blood Cell (WBC) Count 6.3 thou/uL (4.8-10.8)
[2022-06-10 22:44] LABS: #Basophils 0.1 thou/uL (0.0-0.2); #Eosinphils 0.3 thou/uL (0.0-0.7); #Lymphocytes 1.3 thou/uL (1.20-3.40); #Monocytes 0.6 thou/uL (0.11-0.59); %Eosinophils 4.5 % (0.0-10.0); %Lymphocytes 20.9 % (21.0-51.0); %Monocytes 9.6 % (0.0-10.0); Mean Platelet Volume 9.7 fL (7.4-10.4); Platelet Count 77 thou/uL (130-400); Platelet Morphology Comment Appears Decreased
[2022-06-10 22:47] LABS: ALT (SGPT) 36 U/L (8-55); AST (SGOT) 63 U/L (5-34); Albumin 3.7 g/dL (3.4-4.8); Alkaline Phosphatase 89 U/L (40-110); Anion Gap 13 mmol/L (10-20); BUN (Urea Nitrogen) 20 mg/dL (8.4-25.7); Bilirubin, Total 2.5 mg/dL (0.2-1.2); Calc. Creatinine Clearance 0 mL/min (70-130); Carbon Dioxide 21 mmol/L (23-31); Chloride 113 mmol/L (98-107); Estimated GFR 95; Globulin 2.8 g/dL (2.4-3.5); Glucose 112 mg/dL (80-115); Potassium 3.4 mmol/L (3.5-5.1); Protein, Total 6.5 g/dL (5.8-8.1); Sodium 144 mmol/L (136-145)
[2022-06-10] MEDS ORDERED: Aspirin Chewable 81 MG TAB ONE (23:12)
== END 2022-06-11 02:18 | disposition home or self-care (01) ==
LOC: ERS 21:31
DX: R07.89 Other chest pain (principal); Z87.891 Personal history of nicotine dependence
CPT/HCPCS: 36415; 71045; 80053; 84484; 85025; 93005

== ENCOUNTER 2022-06-27 13:14 | Inpatient (IN) | payer OTHER, MEDICAID ==
[2022-06-27 14:16] LABS: #Eosinphils 0.2 thou/uL (0.0-0.7); #Lymphocytes 1.5 thou/uL (1.20-3.40); #Monocytes 0.4 thou/uL (0.11-0.59); #Neutrophils 6.1 thou/uL (1.40-6.50); %Basophils 0.4 % (0.0-1.0); %Eosinophils 1.9 % (0.0-10.0); %Monocytes 4.9 % (0.0-10.0); %Neutrophils 74.8 % (42.0-75.0); Hemoglobin 13.6 g/dL (14.0-18.0); Mean Corpuscular HGB CONC 34.2 g/dL (32.0-36.0); Mean Corpuscular Hemoglobin 33.6 pg (27.0-31.0); Mean Corpuscular Volume 98.3 fL (78.0-98.0); Mean Platelet Volume 9.3 fL (7.4-10.4); Platelet Count 94 thou/uL (130-400); Red Blood Cell (RBC) Count 4.06 mill/uL (4.70-6.10); White Blood Cell (WBC) Count 8.2 thou/uL (4.8-10.8)
[2022-06-27 14:29] LABS: ALT (SGPT) 24 U/L (8-55); AST (SGOT) 30 U/L (5-34); Albumin 4.3 g/dL (3.4-4.8); Alkaline Phosphatase 117 U/L (40-110); Anion Gap 14 mmol/L (10-20); BUN (Urea Nitrogen) 14 mg/dL (8.4-25.7); Bilirubin, Total 2.9 mg/dL (0.2-1.2); Calc. Creatinine Clearance 0 mL/min (70-130); Calcium 9.9 mg/dL (7.8-10.44); Carbon Dioxide 25 mmol/L (23-31); Chloride 108 mmol/L (98-107); Estimated GFR 86; Globulin 3.5 g/dL (2.4-3.5); Glucose 141 mg/dL (80-115); Potassium 3.8 mmol/L (3.5-5.1); Protein, Total 7.8 g/dL (5.8-8.1); Sodium 143 mmol/L (136-145)
[2022-06-27 14:30] LABS: Acetaminophen Less than 10.0 mcg/mL (10.0-30.0); Alcohol Less than 10 mg/dL (Less than 10); Salicylate Less than 8.0 mg/dL (15.0-30.0)
[2022-06-27] MEDS ORDERED: Lorazepam 2 MG/ML VIAL ONE (15:15)
[2022-06-27] MEDS ORDERED: Lactulose 10 GM/15 ML Oral Solution PR SCH (15:15)
[2022-06-27 15:51] LABS: Bilirubin Negative (Negative); Blood, Urine Negative (Negative); Clarity Clear (Clear); Glucose, Urine (Dipstick) Normal (Negative); Ketone, Urine Negative (Negative); Leukocyte Negative Leu/uL (Negative); Nitrite Negative (Negative); Protein, Urine (Dipstick) Negative (Neg-Trace); Specific Gravity, Urine 1.016 (1.002-1.036); pH, Urine 7.5 (5.0-9.0)
[2022-06-27 16:06] LABS: Amphetamine Not Detected (NotDetected); Barbiturates Screen Not Detected (NotDetected); Benzodiazepine Screen Not Detected (NotDetected); Cocaine Metabolite Screen Not Detected (NotDetected); Methadone Not Detected (NotDetected); Methamphetamine Not Detected (NotDetected); Opiate Screen Detected (NotDetected); Oxycodone Screen Not Detected (NotDetected); Phencyclidine (PCP) Not Detected (NotDetected); THC/Cannabinoid Screen Not Detected (NotDetected); Tricyclic Screen Not Detected (NotDetected)
[2022-06-27] MEDS ORDERED: Ondansetron ODT 4 MG TAB PO PRN (17:32)
[2022-06-27] MEDS ORDERED: hydrALAZINE 20 MG/ML VIAL SLOW IVP PRN (18:06)
[2022-06-27] MEDS ORDERED: Labetalol HCl 100 MG/20 ML VIAL SLOW IVP PRN (18:44)
[2022-06-28 06:44] LABS: #Basophils 0.1 thou/uL (0.0-0.2); #Eosinphils 0.3 thou/uL (0.0-0.7); #Lymphocytes 1.4 thou/uL (1.20-3.40); #Monocytes 0.7 thou/uL (0.11-0.59); #Neutrophils 4.9 thou/uL (1.40-6.50); %Basophils 0.8 % (0.0-1.0); %Eosinophils 3.8 % (0.0-10.0); %Lymphocytes 19.4 % (21.0-51.0); %Monocytes 9.2 % (0.0-10.0); %Neutrophils 66.7 % (42.0-75.0); Hemoglobin 12.7 g/dL (14.0-18.0); Mean Corpuscular HGB CONC 33.2 g/dL (32.0-36.0); Mean Corpuscular Hemoglobin 32.3 pg (27.0-31.0); Mean Corpuscular Volume 97.5 fL (78.0-98.0); Mean Platelet Volume 9.6 fL (7.4-10.4); Platelet Count 82 thou/uL (130-400); RBC Distribution Width 16.4 % (11.5-14.5); Red Blood Cell (RBC) Count 3.92 mill/uL (4.70-6.10); White Blood Cell (WBC) Count 7.3 thou/uL (4.8-10.8)
[2022-06-28 07:00] LABS: ALT (SGPT) 18 U/L (8-55); AST (SGOT) 24 U/L (5-34); Albumin 3.7 g/dL (3.4-4.8); Alkaline Phosphatase 83 U/L (40-110); Anion Gap 12 mmol/L (10-20); BUN (Urea Nitrogen) 16 mg/dL (8.4-25.7); Bilirubin, Total 2.8 mg/dL (0.2-1.2); Calc. Creatinine Clearance 100 mL/min (70-130); Calcium 9.2 mg/dL (7.8-10.44); Carbon Dioxide 24 mmol/L (23-31); Chloride 110 mmol/L (98-107); Estimated GFR 96; Globulin 2.8 g/dL (2.4-3.5); Glucose 106 mg/dL (80-115); Potassium 3.6 mmol/L (3.5-5.1); Protein, Total 6.5 g/dL (5.8-8.1); Sodium 142 mmol/L (136-145)
[2022-06-28] MEDS ORDERED: FLU VACC QS2022-23(65YR UP)/PF 240 MCG/0.7 ML SYRINGE IM ONE (09:00)
[2022-06-28] MEDS ORDERED: Lactulose 10 GM/15 ML Oral Solution PR SCH ×4 (10:15→16:00)
[2022-06-28] MEDS: Enoxaparin Sodium 40 MG/0.4 ML SYRINGE SC SCH (10:55)
[2022-06-28] MEDS ORDERED: Morphine 4 MG/ML VIAL SLOW IVP SCH (12:30)
[2022-06-28] MEDS: Lactulose 10 GM/15 ML Oral Solution PR SCH ×2 (15:53→21:04)
[2022-06-28] MEDS: Morphine IR Tab 15 MG TAB PO PRN ×2 (16:33→22:18)
[2022-06-28] MEDS: Rifaximin 550 MG TAB PO SCH (20:55)
[2022-06-29] MEDS: Lactulose 10 GM/15 ML Oral Solution PR SCH (04:03)
[2022-06-29] MEDS ORDERED: Levothyroxine Sodium 100 MCG TAB PO SCH (06:00)
[2022-06-29 06:41] LABS: #Basophils 0.1 thou/uL (0.0-0.2); #Eosinphils 0.4 thou/uL (0.0-0.7); #Lymphocytes 1.5 thou/uL (1.20-3.40); #Monocytes 0.7 thou/uL (0.11-0.59); #Neutrophils 4.1 thou/uL (1.40-6.50); %Basophils 0.8 % (0.0-1.0); %Eosinophils 6.6 % (0.0-10.0); %Monocytes 10.4 % (0.0-10.0); %Neutrophils 60.2 % (42.0-75.0); Hemoglobin 12.9 g/dL (14.0-18.0); Mean Corpuscular Hemoglobin 32.2 pg (27.0-31.0); Mean Corpuscular Volume 97.5 fL (78.0-98.0); Mean Platelet Volume 9.8 fL (7.4-10.4); Platelet Count 91 thou/uL (130-400); RBC Distribution Width 16.2 % (11.5-14.5); White Blood Cell (WBC) Count 6.8 thou/uL (4.8-10.8)
[2022-06-29 06:42] LABS: ALT (SGPT) 21 U/L (8-55); AST (SGOT) 28 U/L (5-34); Albumin 3.8 g/dL (3.4-4.8); Alkaline Phosphatase 92 U/L (40-110); Anion Gap 14 mmol/L (10-20); BUN (Urea Nitrogen) 18 mg/dL (8.4-25.7); Bilirubin, Total 2.7 mg/dL (0.2-1.2); Calc. Creatinine Clearance 96 mL/min (70-130); Calcium 9.1 mg/dL (7.8-10.44); Carbon Dioxide 21 mmol/L (23-31); Chloride 110 mmol/L (98-107); Estimated GFR 95; Globulin 2.9 g/dL (2.4-3.5); Glucose 126 mg/dL (80-115); Potassium 3.4 mmol/L (3.5-5.1); Protein, Total 6.7 g/dL (5.8-8.1); Sodium 142 mmol/L (136-145)
[2022-06-29] MEDS: Enoxaparin Sodium 40 MG/0.4 ML SYRINGE SC SCH (07:58)
[2022-06-29] MEDS: Rifaximin 550 MG TAB PO SCH (07:59)
[2022-06-29] MEDS ORDERED: Potassium Chloride 20 MEQ TAB PO SCH (08:45)
[2022-06-29] MEDS ORDERED: Nadolol 40 MG TAB PO SCH (09:00)
[2022-06-29] MEDS ORDERED: Non-Formulary Item 1 EACH (Lactulose 10 Gm/15ml Oral Sol 10 GM/15 ML Ml) PO SCH (09:00)
[2022-06-29 15:55] VITALS: BP 166/93; TEMP 98
== END 2022-06-29 16:15 | disposition home or self-care (01) | DRG 441 ==
LOC: ERS 13:14 → T4-A 15:32 → OBSVTOIN 06-28 12:12
PROVIDERS: ADMIT Family Medicine; ATTEND Family Medicine
DX: K76.82 Hepatic encephalopathy (principal); G93.41 Metabolic encephalopathy; C22.0 Liver cell carcinoma; Z20.822 Contact with and (suspected) exposure to COVID-19; I10 Essential (primary) hypertension; K76.1 Chronic passive congestion of liver; Z98.890 Other specified postprocedural states; Z79.899 Other long term (current) drug therapy; Z87.891 Personal history of nicotine dependence; K59.00 Constipation, unspecified
CPT/HCPCS: 36415; 70450; 71045; 80053; 80306; 80307; 81003; 82140; 85025; 93005; 96372; G0378; J1650; J2060; J2270; U0003; U0005

== ENCOUNTER 2022-07-20 10:12 | Observation (INO) | payer OTHER, MEDICAID ==
[2022-07-20 10:59] LABS: #Basophils 0.1 thou/uL (0.0-0.2); #Eosinphils 0.4 thou/uL (0.0-0.7); #Lymphocytes 1.3 thou/uL (1.20-3.40); #Monocytes 0.5 thou/uL (0.11-0.59); #Neutrophils 3.8 thou/uL (1.40-6.50); %Basophils 1.5 % (0.0-1.0); %Eosinophils 6.7 % (0.0-10.0); %Lymphocytes 21.4 % (21.0-51.0); %Neutrophils 62.4 % (42.0-75.0); Mean Corpuscular HGB CONC 33.4 g/dL (32.0-36.0); Mean Corpuscular Hemoglobin 33.1 pg (27.0-31.0); Mean Corpuscular Volume 99.1 fl (78.0-98.0); Mean Platelet Volume 8.5 fL (7.4-10.4); Platelet Count 85 thou/uL (130-400); RBC Distribution Width 15.8 % (11.5-14.5); Red Blood Cell (RBC) Count 3.63 mill/uL (4.70-6.10)
[2022-07-20 11:11] LABS: ALT (SGPT) 20 U/L (8-55); AST (SGOT) 25 U/L (5-34); Albumin 3.8 g/dL (3.4-4.8); Alkaline Phosphatase 101 U/L (40-110); Anion Gap 9 mmol/L (10-20); BUN (Urea Nitrogen) 11 mg/dL (8.4-25.7); Bilirubin, Total 1.9 mg/dL (0.2-1.2); Calc. Creatinine Clearance 0 mL/min (70-130); Calcium 9.3 mg/dL (7.8-10.44); Carbon Dioxide 27 mmol/L (23-31); Chloride 107 mmol/L (98-107); Estimated GFR 92; Globulin 3.1 g/dL (2.4-3.5); Glucose 114 mg/dL (80-115); Lipase 42 U/L (8-78); Potassium 3.9 mmol/L (3.5-5.1); Protein, Total 6.9 g/dL (5.8-8.1); Sodium 139 mmol/L (136-145)
[2022-07-20] MEDS ORDERED: Bisacodyl 10 MG SUPP PR PRN (13:11)
[2022-07-20] MEDS ORDERED: Morphine ER 15 MG TAB PO PRN ×2 (13:53→14:46)
[2022-07-20 14:19] VITALS: BMI 29.0
[2022-07-20] MEDS: Gabapentin 100 MG CAP PO SCH ×2 (14:20→21:44)
[2022-07-20] MEDS ORDERED: hydrALAZINE 20 MG/ML VIAL SLOW IVP PRN (17:05)
[2022-07-20 17:13] LABS: INR-International Normal Ratio 1.2; Prothrombin Time 15.8 sec (12.0-14.7)
[2022-07-20 17:14] LABS: PTT 36.2 sec (22.9-36.1)
[2022-07-20 17:40] LABS: T4 6.4 ug/dL (4.87-11.72); Thyroid Stimulating Hormone 20.06 uIU/mL (0.35-4.94)
[2022-07-20] MEDS: Rifaximin 550 MG TAB PO SCH (21:44)
[2022-07-21] MEDS: Levothyroxine Sodium 100 MCG TAB PO SCH (05:42)
[2022-07-21 07:24] LABS: #Basophils 0.1 thou/uL (0.0-0.2); #Eosinphils 0.3 thou/uL (0.0-0.7); #Lymphocytes 1.1 thou/uL (1.20-3.40); #Monocytes 0.4 thou/uL (0.11-0.59); #Neutrophils 3.6 thou/uL (1.40-6.50); %Basophils 0.9 % (0.0-1.0); %Eosinophils 6.1 % (0.0-10.0); %Lymphocytes 19.6 % (21.0-51.0); %Monocytes 7.9 % (0.0-10.0); %Neutrophils 65.5 % (42.0-75.0); Mean Corpuscular HGB CONC 33.7 g/dL (32.0-36.0); Mean Corpuscular Hemoglobin 33.4 pg (27.0-31.0); Mean Corpuscular Volume 99.2 fl (78.0-98.0); Mean Platelet Volume 9.8 fL (7.4-10.4); Platelet Count 81 thou/uL (130-400); RBC Distribution Width 15.9 % (11.5-14.5); Red Blood Cell (RBC) Count 3.58 mill/uL (4.70-6.10); White Blood Cell (WBC) Count 5.5 thou/uL (4.8-10.8)
[2022-07-21 07:40] LABS: ALT (SGPT) 20 U/L (8-55); AST (SGOT) 26 U/L (5-34); Albumin 3.6 g/dL (3.4-4.8); Alkaline Phosphatase 117 U/L (40-110); Anion Gap 12 mmol/L (10-20); BUN (Urea Nitrogen) 13 mg/dL (8.4-25.7); Bilirubin, Total 1.3 mg/dL (0.2-1.2); Calc. Creatinine Clearance 102 mL/min (70-130); Calcium 9.2 mg/dL (7.8-10.44); Carbon Dioxide 23 mmol/L (23-31); Chloride 107 mmol/L (98-107); Estimated GFR 94; Glucose 112 mg/dL (80-115); Potassium 3.6 mmol/L (3.5-5.1); Protein, Total 6.6 g/dL (5.8-8.1); Sodium 138 mmol/L (136-145)
[2022-07-21] MEDS: Gabapentin 100 MG CAP PO SCH ×3 (08:25→20:34)
[2022-07-21] MEDS: Nadolol 40 MG TAB PO SCH (08:25)
[2022-07-21] MEDS: Rifaximin 550 MG TAB PO SCH ×2 (08:25→20:34)
[2022-07-22] MEDS: Levothyroxine Sodium 100 MCG TAB PO SCH (05:29)
[2022-07-22 07:32] LABS: #Eosinphils 0.2 thou/uL (0.0-0.7); #Lymphocytes 1.1 thou/uL (1.20-3.40); #Monocytes 0.5 thou/uL (0.11-0.59); #Neutrophils 2.9 thou/uL (1.40-6.50); %Basophils 0.3 % (0.0-1.0); %Eosinophils 4.1 % (0.0-10.0); %Lymphocytes 23.1 % (21.0-51.0); %Monocytes 9.7 % (0.0-10.0); %Neutrophils 62.7 % (42.0-75.0); Hemoglobin 10.9 g/dL (14.0-18.0); Mean Corpuscular Hemoglobin 32.5 pg (27.0-31.0); Mean Corpuscular Volume 98.7 fl (78.0-98.0); Platelet Count 78 thou/uL (130-400); RBC Distribution Width 16.2 % (11.5-14.5); Red Blood Cell (RBC) Count 3.36 mill/uL (4.70-6.10); White Blood Cell (WBC) Count 4.6 thou/uL (4.8-10.8)
[2022-07-22] MEDS: Nadolol 40 MG TAB PO SCH (07:41)
[2022-07-22] MEDS: Gabapentin 100 MG CAP PO SCH ×3 (07:41→20:11)
[2022-07-22] MEDS: Rifaximin 550 MG TAB PO SCH ×2 (07:41→20:11)
[2022-07-22 07:48] LABS: ALT (SGPT) 16 U/L (8-55); AST (SGOT) 20 U/L (5-34); Albumin 3.3 g/dL (3.4-4.8); Alkaline Phosphatase 99 U/L (40-110); Anion Gap 10 mmol/L (10-20); BUN (Urea Nitrogen) 13 mg/dL (8.4-25.7); Bilirubin, Total 1.3 mg/dL (0.2-1.2); Calc. Creatinine Clearance 100 mL/min (70-130); Calcium 8.8 mg/dL (7.8-10.44); Carbon Dioxide 21 mmol/L (23-31); Chloride 113 mmol/L (98-107); Estimated GFR 92; Globulin 2.8 g/dL (2.4-3.5); Glucose 129 mg/dL (80-115); Potassium 3.4 mmol/L (3.5-5.1); Protein, Total 6.1 g/dL (5.8-8.1); Sodium 141 mmol/L (136-145)
[2022-07-22] MEDS ORDERED: Calcium Carbonate 500 MG ChewTAB PO PRN (18:58)
[2022-07-23] MEDS: Levothyroxine Sodium 100 MCG TAB PO SCH (06:12)
[2022-07-23] MEDS ORDERED: Spironolactone 100 MG TAB PO SCH (08:00)
[2022-07-23 08:09] LABS: ALT (SGPT) 15 U/L (8-55); AST (SGOT) 21 U/L (5-34); Albumin 3.5 g/dL (3.4-4.8); Alkaline Phosphatase 93 U/L (40-110); Anion Gap 12 mmol/L (10-20); BUN (Urea Nitrogen) 15 mg/dL (8.4-25.7); Bilirubin, Total 1.4 mg/dL (0.2-1.2); Calc. Creatinine Clearance 103 mL/min (70-130); Carbon Dioxide 18 mmol/L (23-31); Chloride 113 mmol/L (98-107); Estimated GFR 95; Glucose 111 mg/dL (80-115); Potassium 3.8 mmol/L (3.5-5.1); Protein, Total 6.5 g/dL (5.8-8.1); Sodium 139 mmol/L (136-145)
[2022-07-23 08:24] LABS: #Basophils 0.1 thou/uL (0.0-0.2); #Eosinphils 0.2 thou/uL (0.0-0.7); #Lymphocytes 1.4 thou/uL (1.20-3.40); #Monocytes 0.6 thou/uL (0.11-0.59); #Neutrophils 4.6 thou/uL (1.40-6.50); %Basophils 0.7 % (0.0-1.0); %Eosinophils 3.3 % (0.0-10.0); %Lymphocytes 20.3 % (21.0-51.0); %Monocytes 8.5 % (0.0-10.0); %Neutrophils 67.1 % (42.0-75.0); Hemoglobin 11.6 g/dL (14.0-18.0); Mean Corpuscular HGB CONC 33.3 g/dL (32.0-36.0); Mean Corpuscular Hemoglobin 33.1 pg (27.0-31.0); Mean Corpuscular Volume 99.3 fl (78.0-98.0); Platelet Count 89 thou/uL (130-400); RBC Distribution Width 15.9 % (11.5-14.5); Red Blood Cell (RBC) Count 3.51 mill/uL (4.70-6.10); White Blood Cell (WBC) Count 6.9 thou/uL (4.8-10.8)
[2022-07-23] MEDS: Gabapentin 100 MG CAP PO SCH ×2 (08:46→14:56)
[2022-07-23] MEDS: Nadolol 40 MG TAB PO SCH (08:46)
[2022-07-23] MEDS: Rifaximin 550 MG TAB PO SCH (08:46)
[2022-07-23 08:57] VITALS: BP 160/89; TEMP 98.2
== END 2022-07-23 15:45 | disposition home or self-care (01) ==
LOC: ERS 10:12 → T4-B 13:31
PROVIDERS: ADMIT Student in an Organized Health Care Education/Training Program; ATTEND Student in an Organized Health Care Education/Training Program
DX: K59.09 Other constipation (principal); C22.0 Liver cell carcinoma; K74.60 Unspecified cirrhosis of liver; D69.6 Thrombocytopenia, unspecified; E87.6 Hypokalemia; E03.9 Hypothyroidism, unspecified; R94.31 Abnormal electrocardiogram [ECG] [EKG]; I12.9 Hypertensive chronic kidney disease with stage 1 through stage 4 chronic kidney disease, or unspecified chronic kidney disease; N18.2 Chronic kidney disease, stage 2 (mild); I87.2 Venous insufficiency (chronic) (peripheral); F10.11 Alcohol abuse, in remission; F14.11 Cocaine abuse, in remission; D53.9 Nutritional anemia, unspecified; Z87.891 Personal history of nicotine dependence; Z79.890 Hormone replacement therapy; Z79.899 Other long term (current) drug therapy; Z20.822 Contact with and (suspected) exposure to COVID-19
CPT/HCPCS: 71045; 74018; 76705; 80053 ×3; 82140 ×2; 82550; 83690; 84436; 84484; 85025 ×3; 85610; 85730; 93005; 94760; 99285; U0003; U0005; 36415; 84443; 96374; G0378; J0360

== ENCOUNTER → 2024-02-12 | Emergency (ER) | payer OTHER ==
[~2024-02-12] MED LIST changes: -Iopamidol-370 76% 500 ML 1 ML ONE; +Morphine IR Tab 15 MG TAB PO SCH
== END ==
LOC: ERS 11:36
DX: R10.9 Unspecified abdominal pain (principal); C22.0 Liver cell carcinoma; Z87.891 Personal history of nicotine dependence
CPT/HCPCS: 99283

== ENCOUNTER 2024-02-18 10:07 | Observation (INO) | payer MEDICARE, OTHER ==
[2024-02-18] MEDS ORDERED: Ondansetron PF 4 MG/2 ML Vial ONE (11:07)
[2024-02-18] MEDS ORDERED: Lactulose 20 GM (30 mL) UDCUP ONE (11:07)
[2024-02-18 11:43] LABS: ALT (SGPT) 29 U/L (8-55); Albumin 3.7 g/dL (3.4-4.8); Anion Gap 14 mmol/L (10-20); Calcium 9.6 mg/dL (7.8-10.44); Carbon Dioxide 15 mmol/L (23-31); Chloride 118 mmol/L (98-107); Globulin 3.8 g/dL (2.4-3.5); Glucose 146 mg/dL (80-115); Potassium 4.5 mmol/L (3.5-5.1); Protein, Total 7.5 g/dL (5.8-8.1); Sodium 142 mmol/L (136-145)
[2024-02-18 11:46] LABS: #Basophils 0.06 10x3/uL (0.0-0.2); %Eosinophils 21.1 % (0.0-10.0); %Lymphocytes 14.5 % (21.0-51.0); %Monocytes 9.7 % (0.0-10.0); %Neutrophils 53.4 % (42.0-75.0); Hematocrit 34.1 % (42.0-52.0); Hemoglobin 10.5 g/dL (14.0-18.0); Mean Corpuscular HGB CONC 30.8 g/dL (32.0-36.0); Mean Corpuscular Hemoglobin 26.3 pg (27.0-31.0); Mean Corpuscular Volume 85.5 fL (78.0-98.0); Platelet Count 89 10x3/uL (130-400); RBC Distribution Width 19.5 % (11.5-14.5); Red Blood Cell (RBC) Count 3.99 mill/uL (4.70-6.10)
[2024-02-18 12:09] LABS: Troponin I Less than 0.010 ng/mL (< 0.028)
[2024-02-18 12:58] LABS: AST (SGOT) 45 U/L (5-34); Alkaline Phosphatase 93 U/L (40-110); BUN (Urea Nitrogen) 19 mg/dL (8.4-25.7); Bilirubin, Total 1.2 mg/dL (0.2-1.2); Calc. Creatinine Clearance 0 mL/min (70-130); Estimated GFR 63; Lipase 53 U/L (8-78); Magnesium 2.5 mg/dL (1.6-2.6)
[2024-02-18] MEDS ORDERED: Calcium Carbonate 500 MG ChewTAB PO PRN (13:02)
[2024-02-18] MEDS ORDERED: Senokot S 8.6-50 MG TAB PO PRN (13:02)
[2024-02-18] MEDS ORDERED: Ondansetron PF 4 MG/2 ML Vial IVP PRN (13:02)
[2024-02-18] MEDS ORDERED: Morphine IR Tab 15 MG TAB PO PRN (13:02)
[2024-02-18 13:25] LABS: Bacteria/HPF None Seen HPF (None Seen); Bilirubin Negative (Negative); Blood, Urine Negative (Negative); CAUTI Indications for Culture Pelvic or flank pain; Clarity Clear (Clear); Glucose, Urine (Dipstick) Normal (Negative); Ketone, Urine Negative (Negative); Leukocyte Negative Leu/uL (Negative); Nitrite Negative (Negative); Protein, Urine (Dipstick) Negative (Neg-Trace); Specific Gravity, Urine 1.021 (1.002-1.036); Squamous Epithelial 0-3 HPF (0-3); Urobilinogen 3 mg/dL (Less than 2); WBC/HPF 0-3 HPF (0-3)
[2024-02-18 13:32] LABS: Urine Culture Reflex No No
[2024-02-18 14:13] LABS: Lactic Acid 1.5 mmol/L (0.5-2.2)
[2024-02-18] MEDS: Lactated Ringer's 1,000 ML IV SCH (15:23)
[2024-02-18 15:27] VITALS: BMI 29.7
[2024-02-18] MEDS: Lactulose 20 GM (30 mL) UDCUP PO SCH ×2 (15:34→18:10)
[2024-02-18] MEDS: Metoclopramide HCl 10 MG (2 mL) VIAL IVP SCH (15:35)
[2024-02-18] MEDS: Rifaximin 550 MG TAB PO SCH (21:17)
[2024-02-19 05:11] LABS: #Basophils 0.03 10x3/uL (0.0-0.2); %Basophils 0.7 % (0.0-1.0); %Eosinophils 25.2 % (0.0-10.0); %Lymphocytes 16.2 % (21.0-51.0); %Neutrophils 46.7 % (42.0-75.0); Hematocrit 28.6 % (42.0-52.0); Mean Corpuscular HGB CONC 31.5 g/dL (32.0-36.0); Mean Corpuscular Hemoglobin 26.1 pg (27.0-31.0); Mean Corpuscular Volume 82.9 fL (78.0-98.0); Mean Platelet Volume 11.6 fL (7.4-10.4); Platelet Count 76 10x3/uL (130-400); RBC Distribution Width 19.5 % (11.5-14.5); Red Blood Cell (RBC) Count 3.45 mill/uL (4.70-6.10)
[2024-02-19 05:28] LABS: ALT (SGPT) 21 U/L (8-55); AST (SGOT) 30 U/L (5-34); Alkaline Phosphatase 84 U/L (40-110); Anion Gap 13 mmol/L (10-20); BUN (Urea Nitrogen) 16 mg/dL (8.4-25.7); Bilirubin, Total 0.9 mg/dL (0.2-1.2); Calc. Creatinine Clearance 88 mL/min (70-130); Calcium 8.5 mg/dL (7.8-10.44); Carbon Dioxide 16 mmol/L (23-31); Chloride 118 mmol/L (98-107); Estimated GFR 78; Glucose 128 mg/dL (80-115); Potassium 4.4 mmol/L (3.5-5.1); Sodium 143 mmol/L (136-145)
[2024-02-19] MEDS: Levothyroxine Sodium 100 MCG TAB PO SCH (06:07)
[2024-02-19] MEDS: Pantoprazole DR 40 MG TAB PO SCH (09:22)
[2024-02-19] MEDS: Nadolol 40 MG TAB PO SCH (09:22)
[2024-02-19] MEDS: Gabapentin 100 MG CAP PO SCH (09:22)
[2024-02-19] MEDS: Acetaminophen 325 MG TAB PO PRN (11:24)
[2024-02-19 18:09] VITALS: BP 157/84; TEMP 98
== END 2024-02-19 18:10 | disposition home or self-care (01) ==
LOC: SUATTDRO 10:07 → ERS 10:07 → ERHOLD 12:59 → MSONC 15:12
PROVIDERS: ADMIT Internal Medicine; ATTEND Family Medicine
DX: K74.60 Unspecified cirrhosis of liver (principal); K76.82 Hepatic encephalopathy; R11.2 Nausea with vomiting, unspecified; C22.0 Liver cell carcinoma; E03.9 Hypothyroidism, unspecified; R41.82 Altered mental status, unspecified; Z96.89 Presence of other specified functional implants; Z79.890 Hormone replacement therapy; Z79.899 Other long term (current) drug therapy
CPT/HCPCS: 71045; 80053 ×2; 81001; 82140 ×2; 83605; 83690; 83735; 84484; 85025 ×2; 87040; 87149 ×2; 93005; 96361; 96375; G0378 ×3; J2405; J2765; J7120 ×2; 36415; 36416

== ENCOUNTER 2024-03-11 12:13 | Inpatient (IN) | payer OTHER, MEDICAID, MEDICARE ==
[2024-03-11] MEDS ORDERED: Iopamidol-370 76% 500 ML MDV (1 ML CHARGE) ONE (15:05)
[2024-03-11 15:11] LABS: Hematocrit 39.3 % (42.0-52.0); Hemoglobin 12.8 g/dL (14.0-18.0); Mean Corpuscular HGB CONC 32.6 g/dL (32.0-36.0); Mean Corpuscular Hemoglobin 28.1 pg (27.0-31.0); Mean Corpuscular Volume 86.2 fL (78.0-98.0); Mean Platelet Volume 10.1 fL (7.4-10.4); Platelet Count 66 10x3/uL (130-400); RBC Distribution Width 23.3 % (11.5-14.5); Red Blood Cell (RBC) Count 4.56 mill/uL (4.70-6.10)
[2024-03-11 15:17] LABS: ALT (SGPT) 27 U/L (8-55); AST (SGOT) 58 U/L (5-34); Albumin 3.5 g/dL (3.4-4.8); Alkaline Phosphatase 93 U/L (40-110); Anion Gap 16 mmol/L (10-20); BUN (Urea Nitrogen) 16 mg/dL (8.4-25.7); Bilirubin, Total 2.7 mg/dL (0.2-1.2); Calc. Creatinine Clearance 0 mL/min (70-130); Calcium 8.8 mg/dL (7.8-10.44); Carbon Dioxide 18 mmol/L (23-31); Chloride 109 mmol/L (98-107); Estimated GFR 74; Globulin 3.6 g/dL (2.4-3.5); Glucose 65 mg/dL (80-115); Potassium 4.2 mmol/L (3.5-5.1); Protein, Total 7.1 g/dL (5.8-8.1); Sodium 139 mmol/L (136-145)
[2024-03-11 15:40] LABS: Anisocytosis SLIGHT = 6-15 cells HPF (0-5); Band 5 % (5-11); Eosinophils 30 % (0-10); Large Platelets 5.9 % (0-5); Lymphocytes 8 % (21-51); Monocytes 8 % (0-10); Neutrophil 45 % (42-75); Ovalocytes SLIGHT = 2-5 cells HPF (0-1); Platelet Adequacy Comment Platelets Decreased; Poikilocytosis MODERATE=16-30 cells HPF (0-5); Polychromasia SLIGHT = 2-3 cells HPF (0-2)
[2024-03-11 16:21] LABS: INR-International Normal Ratio 1.7; Prothrombin Time 19.9 sec (12.0-14.7)
[2024-03-11 16:22] LABS: PTT 38.8 sec (22.9-36.1)
[2024-03-11] MEDS ORDERED: Ondansetron ODT 4 MG TAB PO PRN (17:51)
[2024-03-11] MEDS ORDERED: Acetaminophen 650 MG Suppository PR PRN (17:51)
[2024-03-11] MEDS ORDERED: Acetaminophen 325 MG TAB PO PRN (17:51)
[2024-03-11] MEDS ORDERED: Ondansetron PF 4 MG/2 ML Vial IVP PRN (17:51)
[2024-03-11] MEDS ORDERED: Dextrose 50% Abboject 50 ML SYRINGE SLOW IVP PRN (18:24)
[2024-03-11] MEDS ORDERED: Glucagon 1 MG/ML KIT IM PRN (18:24)
[2024-03-11] MEDS ORDERED: Dextrose 5% in Water 1,000 ML IV PRN (18:24)
[2024-03-11] MEDS: Dextrose 5%-Lactated Ringers 1,000 ML IV SCH (22:30)
[2024-03-11 23:27] VITALS: BMI 28.6
[2024-03-12] MEDS: Famotidine/PF 20 mg/2ml Vial SLOW IVP SCH (00:57)
[2024-03-12] MEDS: Famotidine 20 MG TAB PO SCH (00:58)
[2024-03-12 06:25] LABS: Hematocrit 36.6 % (42.0-52.0); Hemoglobin 11.7 g/dL (14.0-18.0); Mean Corpuscular Hemoglobin 27.9 pg (27.0-31.0); Mean Corpuscular Volume 87.1 fL (78.0-98.0); Platelet Count 57 10x3/uL (130-400); RBC Distribution Width 23.5 % (11.5-14.5)
[2024-03-12 06:43] LABS: ALT (SGPT) 21 U/L (8-55); AST (SGOT) 40 U/L (5-34); Albumin 3.1 g/dL (3.4-4.8); Alkaline Phosphatase 88 U/L (40-110); Anion Gap 15 mmol/L (10-20); BUN (Urea Nitrogen) 14 mg/dL (8.4-25.7); Bilirubin, Total 2.3 mg/dL (0.2-1.2); Calc. Creatinine Clearance 110 mL/min (70-130); Calcium 8.5 mg/dL (7.8-10.44); Carbon Dioxide 16 mmol/L (23-31); Chloride 109 mmol/L (98-107); Estimated GFR 96; Globulin 2.9 g/dL (2.4-3.5); Glucose 89 mg/dL (80-115); Potassium 3.9 mmol/L (3.5-5.1); Sodium 136 mmol/L (136-145)
[2024-03-12 08:07] LABS: Anisocytosis SLIGHT = 6-15 cells HPF (0-5); Band 2 % (5-11); Burr Cells SLIGHT = 2-5 cells HPF (0-1); Elliptocytes SLIGHT = 2-5 cells HPF (0-1); Eosinophils 31 % (0-10); Lymphocytes 14 % (21-51); Monocytes 2 % (0-10); Neutrophil 46 % (42-75); Platelet Adequacy Comment Significant Decrease; Poikilocytosis SLIGHT = 6-15 cells HPF (0-5); Polychromasia MODERATE = 3-4 cells HPF (0-2); Schistocytes SLIGHT = 2-5 cells HPF (0-1)
[2024-03-12] MEDS ORDERED: PROPOFOL 20 ML ONE (09:20)
[2024-03-12] MEDS ORDERED: Lidocaine 2% PF 5 ML VIAL ONE (09:20)
[2024-03-12] MEDS ORDERED: fentaNYL 50 mcg/mL 1 mL Vial ONE (09:20)
[2024-03-12] MEDS: Morphine 2 MG/ML VIAL SLOW IVP SCH ×2 (12:02→23:32)
[2024-03-12] MEDS: Lactulose 20 GM (30 mL) UDCUP PO SCH (14:29)
[2024-03-12] MEDS: Rifaximin 550 MG TAB PO SCH (20:19)
[2024-03-13] MEDS: Pantoprazole 40 MG VIAL IVP SCH (08:05)
[2024-03-13] MEDS: Nadolol 40 MG TAB PO SCH (08:05)
[2024-03-13 13:51] VITALS: BP 131/83; TEMP 97.5
== END 2024-03-13 13:55 | disposition home or self-care (01) | DRG 432 ==
LOC: ERS 12:13 → ERHOLD 17:51 → MSONC 22:32
PROVIDERS: ADMIT Student in an Organized Health Care Education/Training Program; ATTEND Hospitalist
PROC: 06L38CZ Occlusion of Esophageal Vein with Extraluminal Device, Via Natural or Artificial Opening Endoscopic (ICD-10-PCS; principal; 2024-03-12)
PROC: 0D718ZZ Dilation of Upper Esophagus, Via Natural or Artificial Opening Endoscopic (ICD-10-PCS; 2024-03-12)
DX: K74.60 Unspecified cirrhosis of liver (principal); I81 Portal vein thrombosis; C22.0 Liver cell carcinoma; D68.9 Coagulation defect, unspecified; I85.10 Secondary esophageal varices without bleeding; Z79.899 Other long term (current) drug therapy; Z90.49 Acquired absence of other specified parts of digestive tract; Z87.891 Personal history of nicotine dependence; D69.6 Thrombocytopenia, unspecified; D50.0 Iron deficiency anemia secondary to blood loss (chronic)
CPT/HCPCS: 36415; 36416; 70491; 71046; 74177; 74230; 80053; 83690; 85025; 85610; 85730; 94760; C9113; J2001; J2272; J2704; J3010; Q9967; S0028

== ENCOUNTER 2024-03-17 22:27 | Emergency (ER) | payer OTHER ==
[2024-03-17] MEDS ORDERED: Ondansetron ODT 8 MG TAB ONE (22:39)
[2024-03-17 23:34] LABS: Acetaminophen Less than 10 mcg/mL (10.0-30.0); Alcohol Less than 10.0 mg/dL (Less than 10); Salicylate Less than 8.0 mg/dL (15.0-30.0)
[2024-03-17 23:35] LABS: ALT (SGPT) 26 U/L (8-55); AST (SGOT) 45 U/L (5-34); Albumin 3.5 g/dL (3.4-4.8); Alkaline Phosphatase 79 U/L (40-110); Anion Gap 16 mmol/L (10-20); BUN (Urea Nitrogen) 14 mg/dL (8.4-25.7); Bilirubin, Total 3.5 mg/dL (0.2-1.2); Calc. Creatinine Clearance 0 mL/min (70-130); Calcium 9.5 mg/dL (7.8-10.44); Carbon Dioxide 21 mmol/L (23-31); Chloride 107 mmol/L (98-107); Estimated GFR 85; Globulin 3.3 g/dL (2.4-3.5); Glucose 126 mg/dL (80-115); Potassium 4.2 mmol/L (3.5-5.1); Protein, Total 6.8 g/dL (5.8-8.1); Sodium 140 mmol/L (136-145)
[2024-03-17 23:38] LABS: #Basophils 0.04 10x3/uL (0.0-0.2); %Basophils 0.9 % (0.0-1.0); %Eosinophils 22.1 % (0.0-10.0); %Monocytes 7.5 % (0.0-10.0); %Neutrophils 52.1 % (42.0-75.0); Hematocrit 42.3 % (42.0-52.0); Hemoglobin 13.3 g/dL (14.0-18.0); Mean Corpuscular HGB CONC 31.4 g/dL (32.0-36.0); Mean Corpuscular Hemoglobin 28.8 pg (27.0-31.0); Mean Corpuscular Volume 91.6 fL (78.0-98.0); Mean Platelet Volume 10.3 fL (7.4-10.4); Platelet Count 50 10x3/uL (130-400); RBC Distribution Width 23.8 % (11.5-14.5); Red Blood Cell (RBC) Count 4.62 mill/uL (4.70-6.10)
[2024-03-17 23:41] LABS: INR-International Normal Ratio 1.5
[2024-03-17 23:42] LABS: PTT 36.7 sec (22.9-36.1)
[2024-03-18 00:06] LABS: Anisocytosis SLIGHT = 6-15 cells HPF (0-5); Burr Cells MODERATE= 6-15 cells HPF (0-1); Platelet Adequacy Comment Platelets Decreased; Poikilocytosis SLIGHT = 6-15 cells HPF (0-5); Polychromasia SLIGHT = 2-3 cells HPF (0-2); Tear Drops SLIGHT = 2-5 cells HPF (0-1)
[2024-03-18] MEDS ORDERED: Lactulose 20 GM (30 mL) UDCUP ONE (01:39)
== END 2024-03-18 04:27 | disposition home or self-care (01) ==
LOC: ERS 22:27
DX: K59.00 Constipation, unspecified (principal); Z87.891 Personal history of nicotine dependence
CPT/HCPCS: 36415; 74176; 80053; 80307; 82140; 85025; 85610; 85730; Q0162

== ENCOUNTER 2024-03-31 02:09 | Emergency (ER) | payer OTHER, MEDICAID ==
[2024-03-31 03:15] LABS: Hematocrit 41.8 % (42.0-52.0); Hemoglobin 14.3 g/dL (14.0-18.0); Mean Corpuscular HGB CONC 34.2 g/dL (32.0-36.0); Mean Corpuscular Volume 87.8 fL (78.0-98.0); Platelet Count 59 10x3/uL (130-400); RBC Distribution Width 23.4 % (11.5-14.5); Red Blood Cell (RBC) Count 4.76 mill/uL (4.70-6.10)
[2024-03-31 03:26] LABS: ALT (SGPT) 34 U/L (8-55); AST (SGOT) 57 U/L (5-34); Albumin 3.4 g/dL (3.4-4.8); Alkaline Phosphatase 81 U/L (40-110); Anion Gap 11 mmol/L (10-20); BUN (Urea Nitrogen) 11 mg/dL (8.4-25.7); Bilirubin, Total 3.7 mg/dL (0.2-1.2); Calc. Creatinine Clearance 0 mL/min (70-130); Calcium 9.1 mg/dL (7.8-10.44); Carbon Dioxide 19 mmol/L (23-31); Chloride 106 mmol/L (98-107); Estimated GFR 87; Globulin 3.3 g/dL (2.4-3.5); Glucose 122 mg/dL (80-115); Lipase 44 U/L (8-78); Magnesium 2.1 mg/dL (1.6-2.6); Potassium 4.3 mmol/L (3.5-5.1); Protein, Total 6.7 g/dL (5.8-8.1); Sodium 132 mmol/L (136-145)
[2024-03-31 03:41] LABS: Burr Cells SLIGHT = 2-5 cells HPF (0-1); Eosinophils 30 % (0-10); Lymphocytes 10 % (21-51); Monocytes 3 % (0-10); Neutrophil 56 % (42-75); Platelet Adequacy Comment Platelets Decreased; Polychromasia SLIGHT = 2-3 cells HPF (0-2); Smudge Cells 6.9 %
[2024-03-31] MEDS ORDERED: Morphine 4 MG/ML VIAL ONE (03:54)
[2024-03-31] MEDS ORDERED: Lactulose 20 GM (30 mL) UDCUP ONE (05:35)
[2024-03-31] MEDS ORDERED: Iopamidol 370 76% 100 ML VIAL ONE (10:46)
== END 2024-03-31 06:30 | disposition home or self-care (01) ==
LOC: ERS 02:09
DX: I81 Portal vein thrombosis (principal); K74.60 Unspecified cirrhosis of liver; K59.00 Constipation, unspecified; K76.89 Other specified diseases of liver; Z55.6 Problems related to health literacy
CPT/HCPCS: 74177; 80053; 82140; 83690; 83735; 85025; J2270; 36415; 93005; 96374; Q9967

== ENCOUNTER 2024-04-03 13:33 | Inpatient (IN) | payer OTHER, MEDICAID ==
[2024-04-03] MEDS ORDERED: Morphine 2 MG/ML VIAL ONE (15:50)
[2024-04-03] MEDS ORDERED: Ondansetron PF 4 MG/2 ML Vial ONE (15:50)
[2024-04-03] MEDS ORDERED: Iopamidol-370 76% 500 ML MDV (1 ML CHARGE) ONE (15:54)
[2024-04-03 16:06] LABS: %Basophils 1.3 % (0.0-1.0); %Eosinophils 32.9 % (0.0-10.0); %Lymphocytes 19.1 % (21.0-51.0); %Monocytes 7.4 % (0.0-10.0); Hematocrit 43.3 % (42.0-52.0); Hemoglobin 14.6 g/dL (14.0-18.0); Mean Corpuscular HGB CONC 33.7 g/dL (32.0-36.0); Mean Corpuscular Volume 88.9 fL (78.0-98.0); Platelet Count 70 10x3/uL (130-400); RBC Distribution Width 23.4 % (11.5-14.5); Red Blood Cell (RBC) Count 4.87 mill/uL (4.70-6.10)
[2024-04-03 16:15] LABS: INR-International Normal Ratio 1.5; Prothrombin Time 18.1 sec (12.0-14.7)
[2024-04-03 16:33] LABS: ALT (SGPT) 45 U/L (8-55); AST (SGOT) 88 U/L (5-34); Albumin 3.5 g/dL (3.4-4.8); Alkaline Phosphatase 85 U/L (40-110); Anion Gap 16 mmol/L (10-20); BUN (Urea Nitrogen) 10 mg/dL (8.4-25.7); Bilirubin, Total 3.6 mg/dL (0.2-1.2); Calc. Creatinine Clearance 0 mL/min (70-130); Calcium 9.3 mg/dL (7.8-10.44); Carbon Dioxide 19 mmol/L (23-31); Chloride 108 mmol/L (98-107); Estimated GFR 86; Globulin 3.8 g/dL (2.4-3.5); Glucose 114 mg/dL (80-115); Potassium 5.5 mmol/L (3.5-5.1); Protein, Total 7.3 g/dL (5.8-8.1); Sodium 137 mmol/L (136-145)
[2024-04-03] MEDS ORDERED: CALCIUM GLUC 1 GM/NS 50 ML IV Bag ONE (17:38)
[2024-04-03] MEDS ORDERED: HYDROmorphone 0.5 MG/0.5 ML SYRINGE ONE (17:38)
[2024-04-03] MEDS ORDERED: Ondansetron PF 4 MG/2 ML Vial IVP PRN (20:17)
[2024-04-03] MEDS ORDERED: Morphine 2 MG/ML VIAL SLOW IVP PRN (20:23)
[2024-04-03] MEDS ORDERED: traMADol HCl 50 MG TAB PO PRN (20:24)
[2024-04-03 21:00] LABS: Troponin I Less than 0.010 ng/mL (< 0.028)
[2024-04-03 21:31] LABS: ALT (SGPT) 41 U/L (8-55); AST (SGOT) 67 U/L (5-34); Albumin 3.4 g/dL (3.4-4.8); Alkaline Phosphatase 84 U/L (40-110); Anion Gap 15 mmol/L (10-20); BUN (Urea Nitrogen) 11 mg/dL (8.4-25.7); Bilirubin, Total 3.7 mg/dL (0.2-1.2); Calc. Creatinine Clearance 0 mL/min (70-130); Calcium 9.5 mg/dL (7.8-10.44); Carbon Dioxide 22 mmol/L (23-31); Chloride 105 mmol/L (98-107); Estimated GFR 80; Globulin 3.3 g/dL (2.4-3.5); Glucose 101 mg/dL (80-115); Potassium 4.6 mmol/L (3.5-5.1); Protein, Total 6.7 g/dL (5.8-8.1); Sodium 137 mmol/L (136-145)
[2024-04-03] MEDS: Rifaximin 550 MG TAB PO SCH (22:14)
[2024-04-03] MEDS: Lactulose 20 GM (30 mL) UDCUP PO SCH (22:14)
[2024-04-03] MEDS: Sodium Bicarb 50 mEq/50 ML VIAL IVP SCH (22:14)
[2024-04-03] MEDS: hydrALAZINE 20 MG/ML VIAL SLOW IVP SCH (23:22)
[2024-04-04 00:35] VITALS: BMI 27.8
[2024-04-04 07:04] LABS: #Basophils 0.08 10x3/uL (0.0-0.2); %Basophils 1.4 % (0.0-1.0); %Eosinophils 30.2 % (0.0-10.0); %Lymphocytes 20.4 % (21.0-51.0); %Monocytes 13.7 % (0.0-10.0); %Neutrophils 34.1 % (42.0-75.0); Hematocrit 35.7 % (42.0-52.0); Hemoglobin 12.3 g/dL (14.0-18.0); Mean Corpuscular HGB CONC 34.5 g/dL (32.0-36.0); Mean Corpuscular Hemoglobin 30.5 pg (27.0-31.0); Mean Corpuscular Volume 88.6 fL (78.0-98.0); Mean Platelet Volume 10.4 fL (7.4-10.4); Platelet Count 60 10x3/uL (130-400); RBC Distribution Width 22.8 % (11.5-14.5); Red Blood Cell (RBC) Count 4.03 mill/uL (4.70-6.10)
[2024-04-04 07:25] LABS: ALT (SGPT) 36 U/L (8-55); AST (SGOT) 56 U/L (5-34); Albumin 2.9 g/dL (3.4-4.8); Alkaline Phosphatase 73 U/L (40-110); Anion Gap 12 mmol/L (10-20); BUN (Urea Nitrogen) 12 mg/dL (8.4-25.7); Calc. Creatinine Clearance 95 mL/min (70-130); Calcium 8.9 mg/dL (7.8-10.44); Carbon Dioxide 25 mmol/L (23-31); Chloride 105 mmol/L (98-107); Estimated GFR 94; Globulin 2.7 g/dL (2.4-3.5); Glucose 112 mg/dL (80-115); Potassium 3.5 mmol/L (3.5-5.1); Protein, Total 5.6 g/dL (5.8-8.1); Sodium 138 mmol/L (136-145)
[2024-04-04] MEDS: Nadolol 40 MG TAB PO SCH (09:17)
[2024-04-04] MEDS: Ondansetron ODT 8 MG TAB PO SCH (09:17)
[2024-04-04] MEDS: Furosemide 40 MG TAB PO SCH (09:18)
[2024-04-04] MEDS: Pantoprazole DR 40 MG TAB PO SCH (09:18)
[2024-04-04] MEDS: Polyethylene Glycol 3350 17 GM Packet PO SCH (11:25)
[2024-04-04] MEDS: Milk Of Magnesia 30 ML UDCUP PO SCH (11:25)
[2024-04-04 14:43] VITALS: BMI 27.8
[2024-04-04] MEDS: Senokot S 8.6-50 MG TAB PO SCH (20:21)
[2024-04-05 07:14] LABS: #Basophils 0.11 10x3/uL (0.0-0.2); %Basophils 1.6 % (0.0-1.0); %Eosinophils 18.8 % (0.0-10.0); %Lymphocytes 18.1 % (21.0-51.0); %Monocytes 10.1 % (0.0-10.0); Hematocrit 41.4 % (42.0-52.0); Mean Corpuscular HGB CONC 33.8 g/dL (32.0-36.0); Mean Corpuscular Hemoglobin 29.9 pg (27.0-31.0); Mean Corpuscular Volume 88.3 fL (78.0-98.0); Platelet Count 70 10x3/uL (130-400); RBC Distribution Width 23.8 % (11.5-14.5); Red Blood Cell (RBC) Count 4.69 mill/uL (4.70-6.10)
[2024-04-05 07:22] LABS: INR-International Normal Ratio 1.6; PTT 38.3 sec (22.9-36.1); Prothrombin Time 19.4 sec (12.0-14.7)
[2024-04-05 07:37] LABS: ALT (SGPT) 36 U/L (8-55); AST (SGOT) 50 U/L (5-34); Alkaline Phosphatase 81 U/L (40-110); Anion Gap 10 mmol/L (10-20); BUN (Urea Nitrogen) 15 mg/dL (8.4-25.7); Bilirubin, Total 2.6 mg/dL (0.2-1.2); Calc. Creatinine Clearance 98 mL/min (70-130); Calcium 8.7 mg/dL (7.8-10.44); Carbon Dioxide 21 mmol/L (23-31); Chloride 109 mmol/L (98-107); Estimated GFR 95; Globulin 2.8 g/dL (2.4-3.5); Glucose 103 mg/dL (80-115); Potassium 3.4 mmol/L (3.5-5.1); Protein, Total 5.8 g/dL (5.8-8.1); Sodium 137 mmol/L (136-145)
[2024-04-05] MEDS: Spironolactone 25 MG TAB PO SCH (08:26)
[2024-04-05] MEDS: Polyethylene Glycol 3350 17 GM Packet PO SCH (08:26)
[2024-04-05] MEDS ORDERED: Magnevist 469MG/ML 20 ML VIAL ONE (12:11)
[2024-04-05] MEDS: Lorazepam 1 MG TAB PO PRN (12:51)
[2024-04-05 12:57] VITALS: BP 130/83; TEMP 98.7
== END 2024-04-05 16:50 | disposition home or self-care (01) | DRG 948 ==
LOC: ERS 13:33 → T4-B 20:17 → OBSVTOIN 04-05 09:58
PROVIDERS: ADMIT Internal Medicine; ATTEND Family Medicine
DX: G89.3 Neoplasm related pain (acute) (chronic) (principal); E87.20 Acidosis, unspecified; C22.0 Liver cell carcinoma; K59.00 Constipation, unspecified; K74.60 Unspecified cirrhosis of liver; E87.5 Hyperkalemia; D69.59 Other secondary thrombocytopenia; B19.20 Unspecified viral hepatitis C without hepatic coma; N20.0 Calculus of kidney; R53.1 Weakness; R94.31 Abnormal electrocardiogram [ECG] [EKG]; R10.9 Unspecified abdominal pain; Z90.49 Acquired absence of other specified parts of digestive tract; Z79.899 Other long term (current) drug therapy
CPT/HCPCS: 36415; 70553; 71045; 74177; 76705; 80053; 83735; 83880; 84484; 85025; 85610; 85730; 93005; 93010; 96374; 96375; A9579; G0378; J0360; J0613; J1170; J2272; J2405; Q0162; Q9967

== ENCOUNTER 2024-04-10 18:53 | Emergency (ER) | payer OTHER, MEDICAID ==
[2024-04-10 19:57] LABS: Hematocrit 39.2 % (42.0-52.0); Hemoglobin 13.4 g/dL (14.0-18.0); Mean Corpuscular HGB CONC 34.2 g/dL (32.0-36.0); Mean Corpuscular Hemoglobin 30.9 pg (27.0-31.0); Mean Corpuscular Volume 90.3 fL (78.0-98.0); Platelet Count 52 10x3/uL (130-400); RBC Distribution Width 23.2 % (11.5-14.5); Red Blood Cell (RBC) Count 4.34 mill/uL (4.70-6.10)
[2024-04-10 20:01] LABS: ALT (SGPT) 40 U/L (8-55); AST (SGOT) 59 U/L (5-34); Albumin 3.4 g/dL (3.4-4.8); Alkaline Phosphatase 91 U/L (40-110); Anion Gap 13 mmol/L (10-20); BUN (Urea Nitrogen) 14 mg/dL (8.4-25.7); Bilirubin, Total 3.2 mg/dL (0.2-1.2); Calc. Creatinine Clearance 0 mL/min (70-130); Carbon Dioxide 21 mmol/L (23-31); Chloride 110 mmol/L (98-107); Estimated GFR 77; Globulin 2.9 g/dL (2.4-3.5); Glucose 116 mg/dL (80-115); Lipase 47 U/L (8-78); Potassium 4.7 mmol/L (3.5-5.1); Protein, Total 6.3 g/dL (5.8-8.1); Sodium 139 mmol/L (136-145)
[2024-04-10 20:02] LABS: Troponin I Less than 0.010 ng/mL (< 0.028)
[2024-04-10 20:36] LABS: Anisocytosis SLIGHT = 6-15 cells HPF (0-5); Burr Cells MODERATE= 6-15 cells HPF (0-1); Eosinophils 45 % (0-10); Lymphocytes 9 % (21-51); Monocytes 7 % (0-10); Neutrophil 39 % (42-75); Nucleated RBC (Manual Ct) 1 % (0); Platelet Adequacy Comment Platelets Decreased; Poikilocytosis SLIGHT = 6-15 cells HPF (0-5); Polychromasia SLIGHT = 2-3 cells HPF (0-2); Smudge Cells 24.8 %
[2024-04-10 20:39] LABS: INR-International Normal Ratio 1.6; Prothrombin Time 18.7 sec (12.0-14.7)
[2024-04-10 20:40] LABS: PTT 37.1 sec (22.9-36.1)
== END 2024-04-10 23:12 | disposition home or self-care (01) ==
LOC: ERS 18:53
DX: R07.89 Other chest pain (principal); D69.6 Thrombocytopenia, unspecified
CPT/HCPCS: 36415; 71045; 74176; 80053; 82274; 83690; 84484; 85025; 85610; 85730; 93005

== ENCOUNTER 2024-08-11 13:06 | Emergency (ER) | payer OTHER ==
[2024-08-11 14:15] LABS: #Basophils 0.03 10x3/uL (0.0-0.2); %Basophils 0.6 % (0.0-1.0); %Eosinophils 1.9 % (0.0-10.0); %Lymphocytes 8.1 % (21.0-51.0); %Monocytes 7.3 % (0.0-10.0); %Neutrophils 81.5 % (42.0-75.0); Hematocrit 32.4 % (42.0-52.0); Hemoglobin 10.4 g/dL (14.0-18.0); Mean Corpuscular HGB CONC 32.1 g/dL (32.0-36.0); Mean Corpuscular Hemoglobin 32.4 pg (27.0-31.0); Mean Corpuscular Volume 100.9 fL (78.0-98.0); Mean Platelet Volume 10.9 fL (7.4-10.4); Platelet Count 86 10x3/uL (130-400); RBC Distribution Width 17.3 % (11.5-14.5); Red Blood Cell (RBC) Count 3.21 mill/uL (4.70-6.10)
[2024-08-11 14:24] LABS: Anion Gap 11 mmol/L (10-20); BUN (Urea Nitrogen) 8 mg/dL (8.4-25.7); Carbon Dioxide 22 mmol/L (23-31); Chloride 108 mmol/L (98-107); Sodium 137 mmol/L (136-145)
[2024-08-11 14:25] LABS: ALT (SGPT) 12 U/L (8-55); AST (SGOT) 30 U/L (5-34); Albumin 2.8 g/dL (3.4-4.8); Alkaline Phosphatase 73 U/L (40-110); Bilirubin, Total 2.8 mg/dL (0.2-1.2); Calc. Creatinine Clearance 0 mL/min (70-130); Calcium 8.2 mg/dL (7.8-10.44); Estimated GFR 97; Globulin 3.7 g/dL (2.4-3.5); Glucose 100 mg/dL (80-115); Protein, Total 6.5 g/dL (5.8-8.1)
[2024-08-11 15:20] LABS: Anisocytosis MODERATE=16-30 cells HPF (0-5); Macrocytosis SLIGHT = 6-15 cells HPF (0-5); Ovalocytes SLIGHT = 2-5 cells HPF (0-1); Platelet Adequacy Comment Platelets Decreased; Polychromasia SLIGHT = 2-3 cells HPF (0-2); Schistocytes SLIGHT = 2-5 cells HPF (0-1); Target Cells SLIGHT = 2-5 cells HPF (0-1); Tear Drops SLIGHT = 2-5 cells HPF (0-1)
== END 2024-08-11 15:34 | disposition home or self-care (01) ==
LOC: ERS 13:06
DX: R05.1 Acute cough (principal)
CPT/HCPCS: 36415; 71045; 80053; 83605; 83880; 84484; 85025; 87428; 93005

== ENCOUNTER 2025-04-06 00:50 | Inpatient (IN) | payer OTHER ==
[2025-04-06 01:46] LABS: #Basophils 0.03 10x3/uL (0.0-0.2); #Eosinophils 0.13 10x3/uL (0.0-0.7); #Monocytes 0.26 10x3/uL (0.11-0.59); #Neutrophils 3.16 10x3/uL (1.40-6.50); %Basophils 0.7 % (0.0-1.0); %Eosinophils 3.0 % (0.0-10.0); %Lymphocytes 15.7 % (21.0-51.0); %Monocytes 6.1 % (0.0-10.0); %Neutrophils 74.0 % (42.0-75.0); Hematocrit 39.9 % (42.0-52.0); Hemoglobin 13.5 g/dL (14.0-18.0); Mean Corpuscular Hemoglobin 31.3 pg (27.0-31.0); Mean Corpuscular Volume 92.6 fL (78.0-98.0); Platelet Count 58 10x3/uL (130-400); Red Blood Cell (RBC) Count 4.31 mill/uL (4.70-6.10); White Blood Cell (WBC) Count 4.27 10x3/uL (4.8-10.8)
[2025-04-06 02:02] LABS: ALT (SGPT) 46 U/L (Less than 45); AST (SGOT) 87 U/L (11-34); Albumin 4.0 g/dL (3.1-4.5); Alkaline Phosphatase 117 U/L (40-110); Anion Gap 16 mmol/L (10-20); BUN (Urea Nitrogen) 20 mg/dL (8.4-25.7); Bilirubin, Total 2.9 mg/dL (0.3-1.2); Calc. Creatinine Clearance 0 mL/min (70-130); Calcium 9.2 mg/dL (7.8-10.44); Carbon Dioxide 22 mmol/L (23-31); Chloride 108 mmol/L (98-107); Globulin 4.0 g/dL (2.4-3.5); Glucose 135 mg/dL (80-115); Potassium 4.1 mmol/L (3.5-5.1); Sodium 142 mmol/L (136-145)
[2025-04-06 03:58] LABS: Lipase 32 U/L (8-78)
[2025-04-06 04:01] LABS: Acetaminophen Less than 10 mcg/mL (Less than 10); Salicylate Less than 8.0 mg/dL (Less than 8.0)
[2025-04-06 04:06] LABS: Troponin I 0.019 ng/mL (< 0.028)
[2025-04-06] MEDS ORDERED: Calcium Carbonate 500 MG ChewTAB PO PRN (05:46)
[2025-04-06] MEDS ORDERED: Electrolyte Replacement Protocol 1 EACH FS SCH (06:00)
[2025-04-06] MEDS: Lactulose 10 GM/15 ML Oral Solution PR SCH (07:47)
[2025-04-06] MEDS: Pantoprazole 40 MG DR.TAB PO SCH (08:23)
[2025-04-06] MEDS: Lactulose 20 GM (30 mL) UDCUP PO SCH (08:23)
[2025-04-06] MEDS: Spironolactone 25 MG TAB PO SCH (08:23)
[2025-04-06] MEDS: Furosemide 20 MG TAB PO SCH (08:24)
[2025-04-06] MEDS ORDERED: Iopamidol-370 76% 500 ML MDV (1 ML CHARGE) ONE (09:47)
[2025-04-06] MEDS: Rifaximin 550 MG TAB PO SCH (09:47)
[2025-04-06] MEDS: Acetaminophen 325 MG TAB PO PRN (13:38)
[2025-04-07 03:54] LABS: #Basophils 0.03 10x3/uL (0.0-0.2); #Eosinophils 0.20 10x3/uL (0.0-0.7); #Monocytes 0.34 10x3/uL (0.11-0.59); #Neutrophils 3.19 10x3/uL (1.40-6.50); %Basophils 0.6 % (0.0-1.0); %Eosinophils 4.1 % (0.0-10.0); %Lymphocytes 21.8 % (21.0-51.0); %Monocytes 7.1 % (0.0-10.0); %Neutrophils 66.2 % (42.0-75.0); Hematocrit 37.3 % (42.0-52.0); Hemoglobin 12.3 g/dL (14.0-18.0); Mean Corpuscular Hemoglobin 31.5 pg (27.0-31.0); Mean Corpuscular Volume 95.6 fL (78.0-98.0); Platelet Count 67 10x3/uL (130-400); Red Blood Cell (RBC) Count 3.90 mill/uL (4.70-6.10); White Blood Cell (WBC) Count 4.82 10x3/uL (4.8-10.8)
[2025-04-07 04:02] LABS: ALT (SGPT) 43 U/L (Less than 45); AST (SGOT) 76 U/L (11-34); Albumin 3.4 g/dL (3.1-4.5); Alkaline Phosphatase 93 U/L (40-110); Anion Gap 16 mmol/L (10-20); BUN (Urea Nitrogen) 26 mg/dL (8.4-25.7); Bilirubin, Total 3.2 mg/dL (0.3-1.2); Calc. Creatinine Clearance 81 mL/min (70-130); Calcium 9.0 mg/dL (7.8-10.44); Carbon Dioxide 19 mmol/L (23-31); Chloride 112 mmol/L (98-107); Globulin 3.5 g/dL (2.4-3.5); Glucose 96 mg/dL (80-115); Potassium 4.2 mmol/L (3.5-5.1); Sodium 143 mmol/L (136-145)
[2025-04-07] MEDS: HYDROcodone/Acetaminophen 5/325 mg Tablet PO PRN (16:59)
[2025-04-07] MEDS: Melatonin 3 MG TAB PO PRN (21:39)
[2025-04-08] MEDS: HYDROcodone/Acetaminophen 5/325 mg Tablet PO PRN (02:28)
[2025-04-08 06:26] LABS: #Basophils 0.03 10x3/uL (0.0-0.2); #Eosinophils 0.22 10x3/uL (0.0-0.7); #Monocytes 0.34 10x3/uL (0.11-0.59); #Neutrophils 3.20 10x3/uL (1.40-6.50); %Basophils 0.6 % (0.0-1.0); %Eosinophils 4.6 % (0.0-10.0); %Lymphocytes 20.1 % (21.0-51.0); %Monocytes 7.1 % (0.0-10.0); %Neutrophils 67.2 % (42.0-75.0); Hematocrit 37.0 % (42.0-52.0); Hemoglobin 12.3 g/dL (14.0-18.0); Mean Corpuscular Hemoglobin 31.5 pg (27.0-31.0); Mean Corpuscular Volume 94.6 fL (78.0-98.0); Platelet Count 55 10x3/uL (130-400); Red Blood Cell (RBC) Count 3.91 mill/uL (4.70-6.10); White Blood Cell (WBC) Count 4.77 10x3/uL (4.8-10.8)
[2025-04-08 06:35] LABS: ALT (SGPT) 43 U/L (Less than 45); AST (SGOT) 70 U/L (11-34); Albumin 3.4 g/dL (3.1-4.5); Alkaline Phosphatase 117 U/L (40-110); Anion Gap 13 mmol/L (10-20); BUN (Urea Nitrogen) 26 mg/dL (8.4-25.7); Bilirubin, Total 2.5 mg/dL (0.3-1.2); Calc. Creatinine Clearance 70 mL/min (70-130); Calcium 8.5 mg/dL (7.8-10.44); Carbon Dioxide 18 mmol/L (23-31); Chloride 112 mmol/L (98-107); Globulin 3.3 g/dL (2.4-3.5); Glucose 103 mg/dL (80-115); Potassium 3.8 mmol/L (3.5-5.1); Sodium 139 mmol/L (136-145)
[2025-04-08] MEDS: Lisinopril 10 MG TAB PO SCH (08:45)
[2025-04-08] MEDS: Lactulose 20 GM (30 mL) UDCUP PO SCH (12:21)
[2025-04-09 04:46] LABS: Anion Gap 14 mmol/L (10-20); BUN (Urea Nitrogen) 27 mg/dL (8.4-25.7); Calc. Creatinine Clearance 66 mL/min (70-130); Calcium 8.8 mg/dL (7.8-10.44); Carbon Dioxide 19 mmol/L (23-31); Chloride 114 mmol/L (98-107); Glucose 120 mg/dL (80-115); Potassium 3.9 mmol/L (3.5-5.1); Sodium 143 mmol/L (136-145)
[2025-04-09 04:58] LABS: #Basophils 0.04 10x3/uL (0.0-0.2); #Eosinophils 0.15 10x3/uL (0.0-0.7); #Monocytes 0.40 10x3/uL (0.11-0.59); #Neutrophils 4.10 10x3/uL (1.40-6.50); %Basophils 0.7 % (0.0-1.0); %Eosinophils 2.7 % (0.0-10.0); %Lymphocytes 16.5 % (21.0-51.0); %Monocytes 7.1 % (0.0-10.0); %Neutrophils 72.6 % (42.0-75.0); Hematocrit 38.3 % (42.0-52.0); Hemoglobin 13.0 g/dL (14.0-18.0); Mean Corpuscular Hemoglobin 31.5 pg (27.0-31.0); Mean Corpuscular Volume 92.7 fL (78.0-98.0); Platelet Count 51 10x3/uL (130-400); Red Blood Cell (RBC) Count 4.13 mill/uL (4.70-6.10); White Blood Cell (WBC) Count 5.64 10x3/uL (4.8-10.8)
[2025-04-09] MEDS: Ondansetron PF 4 MG/2 ML Vial IVP PRN (10:30)
[2025-04-09 11:20] LABS: INR-International Normal Ratio 1.6; Prothrombin Time 18.7 sec (12.0-14.7)
[2025-04-09 11:22] LABS: PTT 35.2 sec (22.9-36.1)
[2025-04-10 03:59] LABS: ALT (SGPT) 60 U/L (Less than 45); AST (SGOT) 87 U/L (11-34); Albumin 3.9 g/dL (3.1-4.5); Alkaline Phosphatase 114 U/L (40-110); Anion Gap 17 mmol/L (10-20); BUN (Urea Nitrogen) 31 mg/dL (8.4-25.7); Bilirubin, Total 3.6 mg/dL (0.3-1.2); Calc. Creatinine Clearance 57 mL/min (70-130); Calcium 9.7 mg/dL (7.8-10.44); Carbon Dioxide 15 mmol/L (23-31); Chloride 112 mmol/L (98-107); Globulin 3.7 g/dL (2.4-3.5); Glucose 123 mg/dL (80-115); Potassium 4.6 mmol/L (3.5-5.1); Sodium 139 mmol/L (136-145)
[2025-04-11 04:00] LABS: Anion Gap 16 mmol/L (10-20); BUN (Urea Nitrogen) 36 mg/dL (8.4-25.7); Calc. Creatinine Clearance 49 mL/min (70-130); Calcium 8.8 mg/dL (7.8-10.44); Carbon Dioxide 16 mmol/L (23-31); Chloride 110 mmol/L (98-107); Glucose 105 mg/dL (80-115); Potassium 4.7 mmol/L (3.5-5.1); Sodium 137 mmol/L (136-145)
[2025-04-11] MEDS: LENVATINIB MESYLATE 4 MG PO SCH (15:15)
[2025-04-12 11:32] LABS: #Basophils Less than 0.03 10x3/uL (0.0-0.2); #Eosinophils 0.16 10x3/uL (0.0-0.7); #Monocytes 0.35 10x3/uL (0.11-0.59); #Neutrophils 2.52 10x3/uL (1.40-6.50); %Basophils 0.5 % (0.0-1.0); %Eosinophils 4.2 % (0.0-10.0); %Lymphocytes 19.2 % (21.0-51.0); %Monocytes 9.2 % (0.0-10.0); %Neutrophils 66.4 % (42.0-75.0); Hematocrit 36.2 % (42.0-52.0); Hemoglobin 12.0 g/dL (14.0-18.0); Mean Corpuscular Hemoglobin 31.7 pg (27.0-31.0); Mean Corpuscular Volume 95.5 fL (78.0-98.0); Platelet Count 36 10x3/uL (130-400); Red Blood Cell (RBC) Count 3.79 mill/uL (4.70-6.10); White Blood Cell (WBC) Count 3.80 10x3/uL (4.8-10.8)
[2025-04-12 12:01] LABS: Anisocytosis MODERATE=16-30 cells HPF (0-5); Burr Cells MODERATE= 6-15 cells HPF (0-1); Platelet Adequacy Comment Significant Decrease; Polychromasia SLIGHT = 2-3 cells HPF (0-2); Schistocytes SLIGHT = 2-5 cells HPF (0-1)
[2025-04-12 12:17] LABS: ALT (SGPT) 52 U/L (Less than 45); AST (SGOT) 84 U/L (11-34); Albumin 3.5 g/dL (3.1-4.5); Alkaline Phosphatase 99 U/L (40-110); Anion Gap 14 mmol/L (10-20); BUN (Urea Nitrogen) 35 mg/dL (8.4-25.7); Bilirubin, Total 2.5 mg/dL (0.3-1.2); Calc. Creatinine Clearance 73 mL/min (70-130); Calcium 8.6 mg/dL (7.8-10.44); Carbon Dioxide 16 mmol/L (23-31); Chloride 109 mmol/L (98-107); Globulin 3.3 g/dL (2.4-3.5); Glucose 137 mg/dL (80-115); Magnesium 2.4 mg/dL (1.6-2.6); Potassium 4.4 mmol/L (3.5-5.1); Sodium 135 mmol/L (136-145)
[2025-04-12 16:08] VITALS: BMI 25.4
[2025-04-12 16:24] VITALS: BP 162/109; TEMP 97.8
== END 2025-04-12 16:47 | disposition hospice, home (50) | DRG 442 ==
LOC: ERS 00:50 → T4-B 05:42
PROVIDERS: ADMIT Student in an Organized Health Care Education/Training Program; ATTEND Internal Medicine
DX: K76.82 Hepatic encephalopathy (principal); C22.0 Liver cell carcinoma; E72.20 Disorder of urea cycle metabolism, unspecified; N17.9 Acute kidney failure, unspecified; E87.1 Hypo-osmolality and hyponatremia; D61.818 Other pancytopenia; E87.20 Acidosis, unspecified; K92.2 Gastrointestinal hemorrhage, unspecified; K74.60 Unspecified cirrhosis of liver; D69.6 Thrombocytopenia, unspecified; K21.9 Gastro-esophageal reflux disease without esophagitis; K75.9 Inflammatory liver disease, unspecified; E03.9 Hypothyroidism, unspecified; I12.9 Hypertensive chronic kidney disease with stage 1 through stage 4 chronic kidney disease, or unspecified chronic kidney disease; N18.2 Chronic kidney disease, stage 2 (mild); Z79.899 Other long term (current) drug therapy; Z79.890 Hormone replacement therapy; Z90.49 Acquired absence of other specified parts of digestive tract; Z98.890 Other specified postprocedural states; Z87.891 Personal history of nicotine dependence
CPT/HCPCS: 36415; 36416; 70450; 74174; 74177; 74183; 80048; 80053; 80307; 82105; 82140; 83690; 83735; 84100; 84484; 85025; 85610; 85730; 86850; 86900; 86901; 93005; 94760; 96365; 96366; 96368; 96375; 96376; J0696; J2270; J2354; J2405; J2470; J7050; Q0162; Q9967